=== PATIENT | female | born 1960 | race African-American/Black ===

== ENCOUNTER 2020-08-28 23:26 | Inpatient (IN) ==
[2020-08-28] MEDS ORDERED: SODIUM CHLORIDE 0.9% 1,000 ML IV STA (23:47)
[2020-08-29] LABS: Basophils % 0.2 % (0.0-0.8); Eosinophils % 0.1 % (0.00-10.9); Hematocrit 23.3 VOL% (35.7-47.0); Hemoglobin 7.2 GM/DL (12.0-16.0); Immature Granulocytes % 1.4 %; Immature Granulocytes Absolute 0.27 #; Lymphocytes % 5.2 % (21.3-54.2); Mean Corpuscular HGB Conc 30.9 GM/DL (32-36); Mean Corpuscular Volume 89.3 FL (87-102); Mean Platelet Volume 9.7 FL (9.6-12.0); Monocytes % 4.2 % (1.7-12.7); NRBC # 0.03 10*3/uL; Neutrophils % 88.9 % (38.7-73.9); Platelet Count 371 T/CUMM (130-400); Red Blood Count 2.61 MC/CUMM (3.8-5.5); Red Cell Distribution Width 14.8 % (9.3-17.3); White Blood Count 19.3 T/CUMM (4-12)
[2020-08-29 00:11] LABS: INR 1.1; PT Patient Result 12.2 SECS (10.5-12.0); Partial Thromboplastin Time 31.4 SECS (23.9-33.8)
[2020-08-29 00:18] LABS: Alanine Aminotransferase 25 U/L (13-56); Albumin 1.1 G/DL (3.4-5.0); Alkaline Phosphatase 145 U/L (45-117); Aspartate Amino Transferase 14 U/L (0-37); Bilirubin,Total < 0.39 MG/DL (0.2-1.0); Blood Urea Nitrogen 53 MG/DL (7-18); Carbon Dioxide 14 MMOL/L (21-32); Estimated Glom Filtration Rate 17 ML/MIN; Osmolality,Calculated 295.9 MOS/KG (273-304); Potassium 3.7 MMOL/L (3.5-5.1); Sodium 122 MMOL/L (136-145); Total Protein 4.7 G/DL (6.4-8.2)
[2020-08-29] MEDS ORDERED: LORazepam 2 MG/1 ML VIAL IV STA (00:20)
[2020-08-29] MEDS ORDERED: LORazepam 2 MG/1 ML VIAL ONE (00:21)
[2020-08-29 00:22] LABS: Glucose 772 MG/DL (74-106)
[2020-08-29 00:28] LABS: Band Neutrophils 4 % (0-10); Lymphocytes 7 % (20-55); Platelet Estimate Increased; Segmented Neutrophils 86 % (50-85); Total Cells Counted 100
[2020-08-29] MEDS ORDERED: INSULIN REGULAR 100 UNIT/ML IV STA (00:28)
[2020-08-29] MEDS ORDERED: INSULIN REGULAR DRIP 100 ML IV PRN (00:28)
[2020-08-29 00:29] LABS: Hypochromasia Slight; Microcytosis 1+; Polychromasia Slight
[2020-08-29] MEDS ORDERED: PIPERACILLIN/TAZOBACTAM 3,375 MG in SODIUM CHLORIDE 0.9% 100 ML IV STA (00:51)
[2020-08-29 01:07] LABS: ABG Base Excess -9.9 MMOL/L (-2.5-2.5); ABG HCO3 16.4 MMOL/L (20-26); ABG Oxygen Saturation 96.4 % (95-100); ABG PCO2 29.4 MM HG (35-48); ABG PH 7.321 (7.35-7.45); ABG PO2 99.6 MM HG (80-95); ABG TCO2 14.4 MMOL/L (23-27)
[2020-08-29] MEDS ORDERED: SODIUM CHLORIDE 0.9% 1,000 ML IV STA ×2 (01:07→01:31)
[2020-08-29 01:12] LABS: Bacteria,Urine Occasional /HPF (Few); Bilirubin,Urine Negative (Negative); Blood, Urine Negative (Negative); Glucose,Urine (UA) >=500 mg/dL (Negative); Hyaline Casts,Urine 4 /LPF (0-3); Ketones,Urine Negative (Negative); Mucus,Urine Occasional /LPF (Occasional); Nitrite,Urine Negative (Negative); Protein,Urine Negative; RBC,Urine 2 /HPF (0-4); Squamous Epithelial Cell,Urine Occasional /HPF (0-10); Urine Appearance Slightly Hazy (Clear); Urine Color Yellow (Yellow); Urine Specific Gravity 1.014 (1.001-1.035); Urine Urobilinogen < 2.0 EU/DL (0.2-1.0)
[2020-08-29] MEDS ORDERED: NOREPINEPHRINE 4 MG/4 ML VIAL IV ONE ×2 (01:55→06:30)
[2020-08-29] MEDS ORDERED: NOREPINEPHRINE 8 MG in SODIUM CHLORIDE 0.9% 242 ML IV PRN (01:55)
[2020-08-29] MEDS ORDERED: VANCOMYCIN INJ 1,000 MG in SODIUM CHLORIDE 0.9% 250 ML IV STA (03:23)
[2020-08-29] MEDS ORDERED: ROCURONIUM 100 MG/10 ML VIAL IV STA (03:29)
[2020-08-29] MEDS ORDERED: LEVOFLOXACIN INJ 750 MG/150 ML PREMIX IV ONE (03:29)
[2020-08-29] MEDS ORDERED: metroNIDAZOLE INJ 500 MG/100 ML PREMIX IV STA (03:30)
[2020-08-29] MEDS ORDERED: ETOMIDATE 20 MG/10 ML VIAL IV STA (03:30)
[2020-08-29] MEDS ORDERED: SODIUM CHLORIDE 0.9% 1,000 ML IV PRN (03:31)
[2020-08-29] MEDS ORDERED: LACTATED RINGERS 2,000 ML IV ONE (03:37)
[2020-08-29] MEDS ORDERED: ALBUTEROL 2.5 MG/3 ML NEB RESP TX PRN (04:07)
[2020-08-29 04:27] LABS: ABG Base Excess -9.5 MMOL/L (-2.5-2.5); ABG HCO3 16.7 MMOL/L (20-26); ABG Oxygen Saturation 99.9 % (95-100); ABG PCO2 27.2 MM HG (35-48); ABG PH 7.355 (7.35-7.45); ABG TCO2 14.5 MMOL/L (23-27)
[2020-08-29] MEDS ORDERED: TISSUE ADHESIVE 1 EACH APPLICATOR TOP ONE (04:40)
[2020-08-29] MEDS ORDERED: propofoL 200 MG/20 ML VIAL IV ONE (04:40)
[2020-08-29] MEDS ORDERED: MIDAZOLAM 2 MG/2 ML VIAL ONE (04:40)
[2020-08-29] MEDS ORDERED: LIDOCAINE 2% 5 ML VIAL ONE (04:40)
[2020-08-29] MEDS ORDERED: BUPIVACAINE MPF 0.25% 30 ML VIAL ONE (04:40)
[2020-08-29] MEDS ORDERED: LIDOCAINE 1%/EPI INJ 20 ML VIAL ONE (04:40)
[2020-08-29] MEDS ORDERED: ROCURONIUM 50 MG/5 ML VIAL IV ONE (04:40)
[2020-08-29] MEDS ORDERED: fentaNYL 100 MCG/2 ML VIAL ONE (04:40)
[2020-08-29] MEDS ORDERED: CLINDAMYCIN INJ 900 MG/50 ML PREMIX IV ONE (04:43)
[2020-08-29 05:43] LABS: ABG Base Excess -10.3 MMOL/L (-2.5-2.5); ABG HCO3 14.8 MMOL/L (20-26); ABG Oxygen Saturation 99.6 % (95-100); ABG PCO2 29.6 MM HG (35-48); ABG PH 7.318 (7.35-7.45); ABG TCO2 15.7 MMOL/L (23-27); Glucose Heart Surgery 163 MG/DL (74-106)
[2020-08-29 05:51] LABS: ABG PO2 527.5 MM HG (80-95)
[2020-08-29] MEDS ORDERED: SODIUM CHLORIDE 0.9% 2,000 ML IV ONE (06:03)
[2020-08-29] MEDS ORDERED: SEVOFLURANE 1 UNIT/15 MINUTE INH ONE (06:03)
[2020-08-29] MEDS ORDERED: PHENYLEPHRINE 1 MG/10 ML SYRINGE IV ONE (06:03)
[2020-08-29] MEDS: POTASSIUM CHLORIDE RIDER 20 MEQ in PREMIX 1 EACH IV SCH ×3 (08:00→12:55)
[2020-08-29 08:23] LABS: Calcium 7.7 MG/DL (8.5-10.1); Osmolality,Calculated 281.8 MOS/KG (273-304)
[2020-08-29 08:25] LABS: Potassium 2.3 MMOL/L (3.5-5.1)
[2020-08-29] MEDS ORDERED: DEXTROSE 50% 25 GM/50 ML VIAL IV ONE (09:26)
[2020-08-29] MEDS: DEXTROSE 50% 25 GM/50 ML VIAL IV PRN (09:27)
[2020-08-29] MEDS ORDERED: PHENYLEPHRINE DRIP 40 MG/250 ML PREMIX IV ONE (09:30)
[2020-08-29] MEDS ORDERED: SODIUM CHLORIDE 0.9% 500 ML IV ONE (09:32)
[2020-08-29] MEDS: PANTOPRAZOLE 40 MG VIAL IV SCH (09:45)
[2020-08-29] MEDS: HYDROCORTISONE 100 MG VIAL IV SCH ×3 (09:46→21:36)
[2020-08-29] MEDS: CEFUROXIME INJ 750 MG in SODIUM CHLORIDE 0.9% 100 ML IV SCH ×2 (09:46→21:16)
[2020-08-29 09:47] LABS: Basophils % 0.4 % (0.0-0.8); Immature Granulocytes % 0.4 %; Immature Granulocytes Absolute 0.03 #; Lymphocytes # 0.8 10*3/uL (1.4-4.0); Lymphocytes % 9.7 % (21.3-54.2); Mean Corpuscular HGB Conc 32.1 GM/DL (32-36); Mean Corpuscular Volume 88.1 FL (87-102); Mean Platelet Volume 9.1 FL (9.6-12.0); Monocytes % 1.3 % (1.7-12.7); Neutrophils % 88.2 % (38.7-73.9); Red Cell Distribution Width 14.9 % (9.3-17.3)
[2020-08-29 09:48] LABS: Red Blood Count 3.86 MC/CUMM (3.8-5.5); White Blood Count 7.7 T/CUMM (4-12)
[2020-08-29 09:49] LABS: Hemoglobin 10.9 GM/DL (12.0-16.0); Platelet Count 237 T/CUMM (130-400)
[2020-08-29] MEDS ORDERED: POTASSIUM CHLORIDE RIDER 10 MEQ in PREMIX 1 EACH IV PRN (09:54)
[2020-08-29] MEDS: DEXTROSE 5% KCL 20 MEQ 20 MEQ/1,000 ML BAG IV SCH ×2 (09:59→20:06)
[2020-08-29 10:04] LABS: Band Neutrophils 10 % (0-10); Hypochromasia 1+; Lymphocytes 9 % (20-55); Segmented Neutrophils 79 % (50-85); Total Cells Counted 100
[2020-08-29] MEDS ORDERED: MAGNESIUM SULF RIDER 2 GM/50 ML PREMIX IV ONE (10:04)
[2020-08-29 10:05] LABS: Microcytosis 1+
[2020-08-29] MEDS: metroNIDAZOLE INJ 500 MG/100 ML PREMIX IV SCH ×3 (10:08→23:38)
[2020-08-29 12:30] LABS: Basophils # 0.1 10*3/uL (0.0-0.2); Basophils % 0.6 % (0.0-0.8); Hemoglobin 10.9 GM/DL (12.0-16.0); Immature Granulocytes % 1.6 %; Immature Granulocytes Absolute 0.21 #; Lymphocytes # 0.6 10*3/uL (1.4-4.0); Lymphocytes % 4.5 % (21.3-54.2); Mean Corpuscular HGB Conc 35.2 GM/DL (32-36); Mean Corpuscular Volume 82.4 FL (87-102); Mean Platelet Volume 9.1 FL (9.6-12.0); Monocytes % 2.5 % (1.7-12.7); NRBC # 0.08 10*3/uL; Neutrophils % 90.8 % (38.7-73.9); Platelet Count 269 T/CUMM (130-400); Red Blood Count 3.76 MC/CUMM (3.8-5.5); Red Cell Distribution Width 14.6 % (9.3-17.3); White Blood Count 13.4 T/CUMM (4-12)
[2020-08-29 12:48] LABS: Calcium 7.5 MG/DL (8.5-10.1); Osmolality,Calculated 282.1 MOS/KG (273-304); Potassium 3.6 MMOL/L (3.5-5.1)
[2020-08-29 12:56] LABS: Anisocytosis 1+; Band Neutrophils 30 % (0-10); Burr Cells Few; Lymphocytes 4 % (20-55); Nucleated Red Blood Cells 1 (0-5); Platelet Estimate Normal; Segmented Neutrophils 64 % (50-85); Total Cells Counted 100
[2020-08-29 12:57] LABS: Poikilocytosis Slight
[2020-08-29] MEDS ORDERED: LACTATED RINGERS 1,000 ML IV ONE (13:02)
[2020-08-29] MEDS: fentaNYL INJ 1,250 MCG in SODIUM CHLORIDE 0.9% 225 ML IV PRN ×2 (13:45→23:37)
[2020-08-29] MEDS: MIDAZOLAM 100 MG in SODIUM CHLORIDE 0.9% 80 ML IV PRN (13:45)
[2020-08-29] MEDS: NOREPINEPHRINE 16 MG in SODIUM CHLORIDE 0.9% 234 ML IV PRN ×2 (13:55→20:40)
[2020-08-29] MEDS: PHENYLEPHRINE DRIP 40 MG/250 ML PREMIX IV PRN (15:00)
[2020-08-29] MEDS ORDERED: CALCIUM GLUCONATE 2,000 MG in SODIUM CHLORIDE 0.9% 100 ML IV ONE (16:00)
[2020-08-29] MEDS: POTASSIUM CHLORIDE RIDER 20 MEQ in PREMIX 1 EACH IV PRN ×2 (17:19→19:36)
[2020-08-29] MEDS: INSULIN LISPRO 100 UNIT/ML SUBCUT SCH ×2 (17:49→21:35)
[2020-08-30] MEDS: INSULIN LISPRO 100 UNIT/ML SUBCUT SCH ×6 (03:03→22:49)
[2020-08-30] MEDS: PHENYLEPHRINE DRIP 40 MG/250 ML PREMIX IV PRN (03:41)
[2020-08-30] MEDS: HYDROCORTISONE 100 MG VIAL IV SCH ×4 (03:45→22:49)
[2020-08-30 04:24] LABS: Basophils % 0.2 % (0.0-0.8); Hemoglobin 9.1 GM/DL (12.0-16.0); Immature Granulocytes % 1.2 %; Immature Granulocytes Absolute 0.25 #; Lymphocytes # 0.7 10*3/uL (1.4-4.0); Lymphocytes % 3.4 % (21.3-54.2); Mean Corpuscular Volume 81.8 FL (87-102); Mean Platelet Volume 9.1 FL (9.6-12.0); Monocytes % 2.1 % (1.7-12.7); Neutrophils % 93.1 % (38.7-73.9); Platelet Count 176 T/CUMM (130-400); Red Blood Count 3.18 MC/CUMM (3.8-5.5); Red Cell Distribution Width 14.7 % (9.3-17.3); White Blood Count 20.6 T/CUMM (4-12)
[2020-08-30 04:25] LABS: ABG HCO3 20.4 MMOL/L (20-26); ABG Oxygen Saturation 99.8 % (95-100); ABG PH 7.492 (7.35-7.45); ABG TCO2 13.5 MMOL/L (23-27)
[2020-08-30 04:33] LABS: INR 1.2
[2020-08-30 04:35] LABS: ABG PCO2 20.9 MM HG (35-48)
[2020-08-30 04:37] LABS: Albumin 0.8 G/DL (3.4-5.0); Bilirubin,Total 1.1 MG/DL (0.2-1.0); Osmolality,Calculated 285.4 MOS/KG (273-304); Potassium 3.8 MMOL/L (3.5-5.1); Total Protein 4.6 G/DL (6.4-8.2)
[2020-08-30 04:51] LABS: Band Neutrophils 6 % (0-10); Lymphocytes 2 % (20-55); Nucleated Red Blood Cells 1 (0-5); Segmented Neutrophils 89 % (50-85); Total Cells Counted 100
[2020-08-30 04:52] LABS: Anisocytosis 1+; Hypochromasia 1+; Microcytosis 1+
[2020-08-30 04:53] LABS: Platelet Estimate Adequate; Target Cells Slight
[2020-08-30] MEDS ORDERED: MAGNESIUM SULF RIDER 2 GM/50 ML PREMIX IV ONE (05:24)
[2020-08-30] MEDS: DEXTROSE 5% KCL 20 MEQ 20 MEQ/1,000 ML BAG IV SCH ×2 (05:25→15:59)
[2020-08-30] MEDS: POTASSIUM CHLORIDE RIDER 20 MEQ in PREMIX 1 EACH IV PRN (05:26)
[2020-08-30] MEDS: NOREPINEPHRINE 16 MG in SODIUM CHLORIDE 0.9% 234 ML IV PRN ×3 (05:27→16:57)
[2020-08-30] MEDS: metroNIDAZOLE INJ 500 MG/100 ML PREMIX IV SCH ×3 (05:28→16:29)
[2020-08-30] MEDS: MAGNESIUM SULF RIDER 2 GM/50 ML PREMIX IV PRN (05:29)
[2020-08-30 05:51] LABS: Potassium Heart/CVR 2.3 MMOL/L (3.5-5.1)
[2020-08-30] MEDS: fentaNYL INJ 1,250 MCG in SODIUM CHLORIDE 0.9% 225 ML IV PRN ×2 (08:36→18:43)
[2020-08-30] MEDS: PANTOPRAZOLE 40 MG VIAL IV SCH (08:59)
[2020-08-30] MEDS: CEFUROXIME INJ 750 MG in SODIUM CHLORIDE 0.9% 100 ML IV SCH ×2 (08:59→20:25)
[2020-08-30] MEDS: INSULIN GLARGINE 100 UNIT/ML SUBCUT SCH (09:16)
[2020-08-30] MEDS ORDERED: PHENYLEPHRINE DRIP 40 MG/250 ML PREMIX IV PRN (09:52)
[2020-08-30] MEDS ORDERED: POTASSIUM PHOSPHATE 30 MMOL in SODIUM CHLORIDE 0.9% 250 ML IV ONE (10:00)
[2020-08-30] MEDS: MIDAZOLAM 100 MG in SODIUM CHLORIDE 0.9% 80 ML IV PRN (12:52)
[2020-08-31] MEDS: metroNIDAZOLE INJ 500 MG/100 ML PREMIX IV SCH ×5 (00:07→22:27)
[2020-08-31] MEDS: DEXTROSE 5% KCL 20 MEQ 20 MEQ/1,000 ML BAG IV SCH ×4 (01:39→23:53)
[2020-08-31] MEDS: INSULIN LISPRO 100 UNIT/ML SUBCUT SCH ×6 (01:50→22:26)
[2020-08-31] MEDS: fentaNYL INJ 1,250 MCG in SODIUM CHLORIDE 0.9% 225 ML IV PRN ×2 (02:41→13:50)
[2020-08-31] MEDS: MIDAZOLAM 100 MG in SODIUM CHLORIDE 0.9% 80 ML IV PRN (03:53)
[2020-08-31] MEDS: HYDROCORTISONE 100 MG VIAL IV SCH ×4 (03:58→22:27)
[2020-08-31 04:25] LABS: ABG Base Excess -6.1 MMOL/L (-2.5-2.5); ABG HCO3 19.4 MMOL/L (20-26); ABG Oxygen Saturation 99.3 % (95-100); ABG PCO2 29.3 MM HG (35-48); ABG PH 7.393 (7.35-7.45); ABG TCO2 16.5 MMOL/L (23-27)
[2020-08-31 04:36] LABS: Basophils % 0.1 % (0.0-0.8); Hematocrit 26.8 VOL% (35.7-47.0); Hemoglobin 8.6 GM/DL (12.0-16.0); Immature Granulocytes % 1.2 %; Immature Granulocytes Absolute 0.22 #; Lymphocytes # 0.6 10*3/uL (1.4-4.0); Lymphocytes % 3.3 % (21.3-54.2); Mean Corpuscular HGB Conc 32.1 GM/DL (32-36); Mean Corpuscular Volume 86.2 FL (87-102); Mean Platelet Volume 8.7 FL (9.6-12.0); NRBC # 0.11 10*3/uL; Neutrophils % 93.4 % (38.7-73.9); Platelet Count 103 T/CUMM (130-400); Red Blood Count 3.11 MC/CUMM (3.8-5.5); Red Cell Distribution Width 15.7 % (9.3-17.3); White Blood Count 17.7 T/CUMM (4-12)
[2020-08-31 04:48] LABS: Band Neutrophils 1 % (0-10); Hypochromasia 1+; Lymphocytes 4 % (20-55); Microcytosis 1+; Ovalocytes Slight; Platelet Estimate Decreased; Segmented Neutrophils 91 % (50-85); Total Cells Counted 100
[2020-08-31 05:01] LABS: Alanine Aminotransferase 14 U/L (13-56); Albumin 0.8 G/DL (3.4-5.0); Alkaline Phosphatase 150 U/L (45-117); Aspartate Amino Transferase 20 U/L (0-37); Bilirubin,Total < 0.39 MG/DL (0.2-1.0); Blood Urea Nitrogen 22 MG/DL (7-18); Calcium 7.4 MG/DL (8.5-10.1); Carbon Dioxide 20 MMOL/L (21-32); Estimated Glom Filtration Rate 79 ML/MIN; Glucose 113 MG/DL (74-106); Osmolality,Calculated 282.4 MOS/KG (273-304); Potassium 3.6 MMOL/L (3.5-5.1); Sodium 140 MMOL/L (136-145); Total Protein 3.8 G/DL (6.4-8.2)
[2020-08-31] MEDS: MAGNESIUM SULF RIDER 2 GM/50 ML PREMIX IV PRN (05:13)
[2020-08-31] MEDS: POTASSIUM CHLORIDE RIDER 20 MEQ in PREMIX 1 EACH IV PRN (07:04)
[2020-08-31] MEDS: DEXTROSE 50% 25 GM/50 ML VIAL IV PRN (07:25)
[2020-08-31] MEDS: INSULIN GLARGINE 100 UNIT/ML SUBCUT SCH (09:10)
[2020-08-31] MEDS: PANTOPRAZOLE 40 MG VIAL IV SCH (09:11)
[2020-08-31] MEDS: CEFUROXIME INJ 750 MG in SODIUM CHLORIDE 0.9% 100 ML IV SCH ×2 (09:11→20:39)
[2020-08-31] MEDS: NOREPINEPHRINE 16 MG in SODIUM CHLORIDE 0.9% 234 ML IV PRN (09:57)
[2020-08-31] MEDS ORDERED: ROCURONIUM 50 MG/5 ML VIAL IV ONE (11:18)
[2020-08-31] MEDS ORDERED: MIDAZOLAM 2 MG/2 ML VIAL ONE ×2 (11:19)
[2020-08-31] MEDS ORDERED: ALBUMIN 5% 25.0 GM/500 ML VIAL IV ONE (12:04)
[2020-08-31] MEDS ORDERED: LACTATED RINGERS 1,000 ML IV ONE (12:27)
[2020-08-31] MEDS ORDERED: SODIUM BICARBONATE 50 MEQ/50 ML VIAL IV ONE (12:28)
[2020-08-31] MEDS ORDERED: CALCIUM CHLORIDE 1,000 MG/10 ML VIAL IV ONE (12:28)
[2020-08-31] MEDS ORDERED: PHENYLEPHRINE 1 MG/10 ML SYRINGE IV ONE (12:41)
[2020-08-31] MEDS ORDERED: SEVOFLURANE 1 UNIT/15 MINUTE INH ONE (13:26)
[2020-08-31] MEDS: HALOPERIDOL DECANOATE 50 MG/1 ML VIAL IM SCH (14:03)
[2020-09-01] MEDS: INSULIN LISPRO 100 UNIT/ML SUBCUT SCH ×6 (02:23→22:49)
[2020-09-01] MEDS: MIDAZOLAM 100 MG in SODIUM CHLORIDE 0.9% 80 ML IV PRN (02:47)
[2020-09-01 03:19] LABS: ABG Base Excess -1.4 MMOL/L (-2.5-2.5); ABG HCO3 23.3 MMOL/L (20-26); ABG Oxygen Saturation 99.9 % (95-100); ABG PCO2 22.5 MM HG (35-48)
[2020-09-01 03:22] LABS: Basophils % 0.1 % (0.0-0.8); Hematocrit 21.2 VOL% (35.7-47.0); Hemoglobin 6.9 GM/DL (12.0-16.0); Immature Granulocytes % 1.3 %; Immature Granulocytes Absolute 0.21 #; Lymphocytes # 0.6 10*3/uL (1.4-4.0); Lymphocytes % 3.4 % (21.3-54.2); Mean Corpuscular HGB Conc 32.5 GM/DL (32-36); Mean Corpuscular Volume 85.5 FL (87-102); Mean Platelet Volume 10.1 FL (9.6-12.0); Monocytes % 2.4 % (1.7-12.7); Neutrophils % 92.8 % (38.7-73.9); Platelet Count 85 T/CUMM (130-400); Red Blood Count 2.48 MC/CUMM (3.8-5.5); Red Cell Distribution Width 15.8 % (9.3-17.3)
[2020-09-01 03:42] LABS: Albumin 1.3 G/DL (3.4-5.0); Bilirubin,Total 0.6 MG/DL (0.2-1.0); Calcium 7.6 MG/DL (8.5-10.1); Hypochromasia 1+; Lymphocytes 4 % (20-55); Microcytosis 1+; Osmolality,Calculated 280.7 MOS/KG (273-304); Platelet Estimate Decreased; Potassium 3.6 MMOL/L (3.5-5.1); Segmented Neutrophils 95 % (50-85); Total Cells Counted 100
[2020-09-01] MEDS: HYDROCORTISONE 100 MG VIAL IV SCH ×4 (05:14→22:07)
[2020-09-01] MEDS: metroNIDAZOLE INJ 500 MG/100 ML PREMIX IV SCH ×4 (05:14→22:07)
[2020-09-01] MEDS: MAGNESIUM SULF RIDER 2 GM/50 ML PREMIX IV PRN (05:24)
[2020-09-01] MEDS ORDERED: SODIUM CHLORIDE 0.9% 1,000 ML IV PRN (06:09)
[2020-09-01] MEDS: fentaNYL INJ 1,250 MCG in SODIUM CHLORIDE 0.9% 225 ML IV PRN ×2 (07:46→16:41)
[2020-09-01] MEDS: PANTOPRAZOLE 40 MG VIAL IV SCH (08:43)
[2020-09-01] MEDS: INSULIN GLARGINE 100 UNIT/ML SUBCUT SCH (08:48)
[2020-09-01] MEDS: DEXTROSE 5% KCL 20 MEQ 20 MEQ/1,000 ML BAG IV SCH ×3 (09:36→20:12)
[2020-09-01] MEDS: CEFUROXIME INJ 750 MG in SODIUM CHLORIDE 0.9% 100 ML IV SCH ×2 (09:36→22:06)
[2020-09-01] MEDS ORDERED: POTASSIUM PHOSPHATE 30 MMOL in SODIUM CHLORIDE 0.9% 250 ML IV ONE (10:00)
[2020-09-01 15:19] LABS: Hematocrit 29.9 VOL% (35.7-47.0); Hemoglobin 9.8 GM/DL (12.0-16.0)
[2020-09-01 19:10] LABS: Potassium 4.5 MMOL/L (3.5-5.1)
[2020-09-01] MEDS: NYSTATIN POWDER 15 GM BOTTLE TOP SCH (22:06)
[2020-09-01] MEDS: OLANZapine 2.5 MG TABLET PO SCH (22:06)
[2020-09-02] MEDS: fentaNYL INJ 1,250 MCG in SODIUM CHLORIDE 0.9% 225 ML IV PRN ×3 (01:18→19:09)
[2020-09-02 04:32] LABS: Basophils % 0.2 % (0.0-0.8); Hematocrit 31.5 VOL% (35.7-47.0); Hemoglobin 10.4 GM/DL (12.0-16.0); Immature Granulocytes % 1.9 %; Immature Granulocytes Absolute 0.28 #; Lymphocytes # 0.5 10*3/uL (1.4-4.0); Lymphocytes % 3.5 % (21.3-54.2); Mean Corpuscular Volume 85.6 FL (87-102); Mean Platelet Volume 10.4 FL (9.6-12.0); Monocytes % 3.1 % (1.7-12.7); NRBC # 0.08 10*3/uL; Neutrophils % 91.3 % (38.7-73.9); Red Cell Distribution Width 15.9 % (9.3-17.3); White Blood Count 14.7 T/CUMM (4-12)
[2020-09-02 04:35] LABS: ABG Base Excess 5.8 MMOL/L (-2.5-2.5); ABG HCO3 29.5 MMOL/L (20-26); ABG Oxygen Saturation 92.7 % (95-100); ABG PO2 69.7 MM HG (80-95); ABG TCO2 28.3 MMOL/L (23-27)
[2020-09-02 04:36] LABS: Platelet Count 80 T/CUMM (130-400); Red Blood Count 3.68 MC/CUMM (3.8-5.5)
[2020-09-02 04:56] LABS: Calcium 7.7 MG/DL (8.5-10.1); Osmolality,Calculated 283.1 MOS/KG (273-304); Potassium 4.6 MMOL/L (3.5-5.1)
[2020-09-02] MEDS: DEXTROSE 5% KCL 20 MEQ 20 MEQ/1,000 ML BAG IV SCH ×2 (04:58→06:12)
[2020-09-02] MEDS: HYDROCORTISONE 100 MG VIAL IV SCH ×5 (05:05→23:40)
[2020-09-02] MEDS: INSULIN LISPRO 100 UNIT/ML SUBCUT SCH ×6 (05:12→22:08)
[2020-09-02] MEDS: metroNIDAZOLE INJ 500 MG/100 ML PREMIX IV SCH ×4 (05:20→23:43)
[2020-09-02] MEDS: NOREPINEPHRINE 16 MG in SODIUM CHLORIDE 0.9% 234 ML IV PRN (06:50)
[2020-09-02 06:57] LABS: Hypochromasia 2+; Lymphocytes 4 % (20-55); Nucleated Red Blood Cells 1 (0-5); Platelet Estimate Decreased; Segmented Neutrophils 92 % (50-85)
[2020-09-02 07:00] LABS: Total Cells Counted 100
[2020-09-02] MEDS ORDERED: POTASSIUM PHOSPHATE 30 MMOL in SODIUM CHLORIDE 0.9% 250 ML IV ONE (07:43)
[2020-09-02] MEDS ORDERED: MAGNESIUM SULF RIDER 2 GM/50 ML PREMIX IV ONE (07:43)
[2020-09-02] MEDS: PANTOPRAZOLE 40 MG VIAL IV SCH (08:43)
[2020-09-02] MEDS: INSULIN GLARGINE 100 UNIT/ML SUBCUT SCH (08:43)
[2020-09-02] MEDS: NYSTATIN POWDER 15 GM BOTTLE TOP SCH ×2 (08:44→21:24)
[2020-09-02] MEDS: CEFUROXIME INJ 750 MG in SODIUM CHLORIDE 0.9% 100 ML IV SCH ×2 (09:30→21:25)
[2020-09-02] MEDS: MIDAZOLAM 100 MG in SODIUM CHLORIDE 0.9% 80 ML IV PRN (09:55)
[2020-09-02] MEDS: LACTATED RINGERS 1,000 ML IV SCH (09:57)
[2020-09-02] MEDS: OLANZapine 2.5 MG TABLET PO SCH (21:24)
[2020-09-03] MEDS: INSULIN LISPRO 100 UNIT/ML SUBCUT SCH ×6 (01:59→20:17)
[2020-09-03] MEDS: fentaNYL INJ 1,250 MCG in SODIUM CHLORIDE 0.9% 225 ML IV PRN ×3 (02:32→23:14)
[2020-09-03 04:44] LABS: ABG Base Excess -2.5 MMOL/L (-2.5-2.5); ABG HCO3 22.3 MMOL/L (20-26); ABG Oxygen Saturation 99.6 % (95-100); ABG PCO2 22.1 MM HG (35-48); ABG PH 7.536 (7.35-7.45); ABG TCO2 16.9 MMOL/L (23-27)
[2020-09-03 05:05] LABS: Basophils % 0.1 % (0.0-0.8); Hematocrit 31.5 VOL% (35.7-47.0); Hemoglobin 10.4 GM/DL (12.0-16.0); Immature Granulocytes % 1.8 %; Immature Granulocytes Absolute 0.28 #; Lymphocytes # 0.6 10*3/uL (1.4-4.0); Lymphocytes % 3.6 % (21.3-54.2); Mean Corpuscular Volume 85.6 FL (87-102); Mean Platelet Volume 11.2 FL (9.6-12.0); Monocytes % 3.6 % (1.7-12.7); NRBC # 0.02 10*3/uL; Neutrophils % 90.9 % (38.7-73.9); Platelet Count 80 T/CUMM (130-400); Red Blood Count 3.68 MC/CUMM (3.8-5.5); Red Cell Distribution Width 15.7 % (9.3-17.3); White Blood Count 15.9 T/CUMM (4-12)
[2020-09-03 05:22] LABS: Albumin 1.4 G/DL (3.4-5.0); Calcium 7.4 MG/DL (8.5-10.1); Osmolality,Calculated 288.4 MOS/KG (273-304); Potassium 4.2 MMOL/L (3.5-5.1); Total Protein 4.2 G/DL (6.4-8.2)
[2020-09-03] MEDS: metroNIDAZOLE INJ 500 MG/100 ML PREMIX IV SCH ×4 (06:15→22:28)
[2020-09-03 06:16] LABS: Band Neutrophils 1 % (0-10); Lymphocytes 2 % (20-55); Platelet Estimate Decreased; Segmented Neutrophils 96 % (50-85); Total Cells Counted 100
[2020-09-03] MEDS: HYDROCORTISONE 100 MG VIAL IV SCH ×4 (06:16→22:24)
[2020-09-03] MEDS: LACTATED RINGERS 1,000 ML IV SCH ×2 (06:40→06:41)
[2020-09-03] MEDS: MAGNESIUM SULF RIDER 2 GM/50 ML PREMIX IV PRN (06:53)
[2020-09-03] MEDS: PANTOPRAZOLE 40 MG VIAL IV SCH (08:19)
[2020-09-03] MEDS: INSULIN GLARGINE 100 UNIT/ML SUBCUT SCH (08:19)
[2020-09-03] MEDS: NYSTATIN POWDER 15 GM BOTTLE TOP SCH ×2 (08:19→20:17)
[2020-09-03] MEDS: CEFUROXIME INJ 750 MG in SODIUM CHLORIDE 0.9% 100 ML IV SCH ×2 (09:40→20:17)
[2020-09-03] MEDS ORDERED: POTASSIUM PHOSPHATE 30 MMOL in SODIUM CHLORIDE 0.9% 250 ML IV ONE (10:37)
[2020-09-03] MEDS ORDERED: LACTATED RINGERS 1,000 ML IV ONE (13:55)
[2020-09-03] MEDS: HALOPERIDOL DECANOATE 50 MG/1 ML VIAL IM SCH (13:59)
[2020-09-03] MEDS: OLANZapine 2.5 MG TABLET PO SCH (20:17)
[2020-09-03] MEDS: MIDAZOLAM 100 MG in SODIUM CHLORIDE 0.9% 80 ML IV PRN (20:46)
[2020-09-04] MEDS: INSULIN LISPRO 100 UNIT/ML SUBCUT SCH ×6 (00:12→23:19)
[2020-09-04] MEDS: NOREPINEPHRINE 16 MG in SODIUM CHLORIDE 0.9% 234 ML IV PRN (03:04)
[2020-09-04] MEDS: LACTATED RINGERS 1,000 ML IV SCH (03:08)
[2020-09-04 03:56] LABS: Basophils % 0.2 % (0.0-0.8); Hematocrit 31.1 VOL% (35.7-47.0); Hemoglobin 10.3 GM/DL (12.0-16.0); Immature Granulocytes % 2.2 %; Lymphocytes # 0.5 10*3/uL (1.4-4.0); Lymphocytes % 2.6 % (21.3-54.2); Mean Corpuscular HGB Conc 33.1 GM/DL (32-36); Mean Corpuscular Volume 87.4 FL (87-102); Mean Platelet Volume 11.3 FL (9.6-12.0); Monocytes % 3.8 % (1.7-12.7); NRBC # 0.02 10*3/uL; Neutrophils % 91.2 % (38.7-73.9); Platelet Count 82 T/CUMM (130-400); Red Blood Count 3.56 MC/CUMM (3.8-5.5); Red Cell Distribution Width 16.1 % (9.3-17.3); White Blood Count 18.6 T/CUMM (4-12)
[2020-09-04 04:11] LABS: Calcium 7.8 MG/DL (8.5-10.1); Osmolality,Calculated 290.3 MOS/KG (273-304); Potassium 4.9 MMOL/L (3.5-5.1)
[2020-09-04 04:16] LABS: Hypochromasia 1+; Lymphocytes 1 % (20-55); Microcytosis 1+; Ovalocytes Slight; Platelet Estimate Decreased; Segmented Neutrophils 95 % (50-85); Total Cells Counted 100
[2020-09-04 04:19] LABS: ABG Base Excess -3.8 MMOL/L (-2.5-2.5); ABG HCO3 21.3 MMOL/L (20-26); ABG Oxygen Saturation 99.1 % (95-100); ABG PCO2 37.7 MM HG (35-48); ABG PH 7.358 (7.35-7.45); ABG TCO2 19.2 MMOL/L (23-27)
[2020-09-04] MEDS: MAGNESIUM SULF RIDER 2 GM/50 ML PREMIX IV PRN (04:25)
[2020-09-04] MEDS: HYDROCORTISONE 100 MG VIAL IV SCH ×2 (05:04→17:27)
[2020-09-04] MEDS: metroNIDAZOLE INJ 500 MG/100 ML PREMIX IV SCH ×4 (05:06→23:04)
[2020-09-04] MEDS: fentaNYL INJ 1,250 MCG in SODIUM CHLORIDE 0.9% 225 ML IV PRN (06:16)
[2020-09-04] MEDS: INSULIN GLARGINE 100 UNIT/ML SUBCUT SCH (08:55)
[2020-09-04] MEDS: PANTOPRAZOLE 40 MG VIAL IV SCH (08:56)
[2020-09-04] MEDS: NYSTATIN POWDER 15 GM BOTTLE TOP SCH ×2 (08:59→20:30)
[2020-09-04] MEDS: CEFUROXIME INJ 750 MG in SODIUM CHLORIDE 0.9% 100 ML IV SCH ×2 (09:26→20:30)
[2020-09-05] MEDS: HYDROmorphone 2 MG/1 ML VIAL IV PRN (01:50)
[2020-09-05 03:28] LABS: Basophils % 0.1 % (0.0-0.8); Hematocrit 33.4 VOL% (35.7-47.0); Hemoglobin 10.4 GM/DL (12.0-16.0); Immature Granulocytes % 1.4 %; Lymphocytes # 0.7 10*3/uL (1.4-4.0); Lymphocytes % 5.2 % (21.3-54.2); Mean Corpuscular HGB Conc 31.1 GM/DL (32-36); Mean Platelet Volume 11.6 FL (9.6-12.0); Monocytes % 4.3 % (1.7-12.7); NRBC # 0.02 10*3/uL; Platelet Count 73 T/CUMM (130-400); Red Blood Count 3.67 MC/CUMM (3.8-5.5); Red Cell Distribution Width 16.7 % (9.3-17.3); White Blood Count 14.1 T/CUMM (4-12)
[2020-09-05 03:40] LABS: Osmolality,Calculated 285.4 MOS/KG (273-304); Potassium 5.3 MMOL/L (3.5-5.1)
[2020-09-05] MEDS: MAGNESIUM SULF RIDER 2 GM/50 ML PREMIX IV PRN (04:45)
[2020-09-05] MEDS: metroNIDAZOLE INJ 500 MG/100 ML PREMIX IV SCH ×3 (04:45→17:50)
[2020-09-05] MEDS: HYDROCORTISONE 100 MG VIAL IV SCH (04:46)
[2020-09-05 05:17] LABS: Allen Test Positive
[2020-09-05 05:18] LABS: ABG Base Excess -2.4 MMOL/L (-2.5-2.5); ABG HCO3 21.1 MMOL/L (20-26); ABG Oxygen Saturation 98.1 % (95-100); ABG PCO2 31.8 MM HG (35-48); ABG PH 7.439 (7.35-7.45); ABG PO2 111.4 MM HG (80-95)
[2020-09-05] MEDS: INSULIN LISPRO 100 UNIT/ML SUBCUT SCH ×4 (05:34→23:26)
[2020-09-05] MEDS: NYSTATIN POWDER 15 GM BOTTLE TOP SCH ×2 (08:28→20:57)
[2020-09-05] MEDS: PANTOPRAZOLE 40 MG VIAL IV SCH (08:29)
[2020-09-05] MEDS: INSULIN GLARGINE 100 UNIT/ML SUBCUT SCH (08:29)
[2020-09-05] MEDS: CEFUROXIME INJ 750 MG in SODIUM CHLORIDE 0.9% 100 ML IV SCH (08:32)
[2020-09-05] MEDS ORDERED: FUROSEMIDE 20 MG/2 ML VIAL IV ONE (08:45)
[2020-09-05] MEDS: METOPROLOL TARTRATE 25 MG TABLET PO SCH ×2 (11:22→20:57)
[2020-09-05] MEDS: ALBUTEROL/IPRATROPIUM 3 ML NEB RESP TX SCH ×2 (15:27→19:17)
[2020-09-05] MEDS ORDERED: FUROSEMIDE 40 MG/4 ML VIAL IV ONE (15:38)
[2020-09-05] MEDS ORDERED: HYDROCORTISONE 100 MG VIAL IV SCH (20:00)
[2020-09-06] MEDS: ALBUTEROL/IPRATROPIUM 3 ML NEB RESP TX SCH ×4 (00:10→18:19)
[2020-09-06 04:47] LABS: Basophils % 0.1 % (0.0-0.8); Hematocrit 35.4 VOL% (35.7-47.0); Hemoglobin 10.8 GM/DL (12.0-16.0); Immature Granulocytes % 1.2 %; Immature Granulocytes Absolute 0.17 #; Lymphocytes # 0.6 10*3/uL (1.4-4.0); Lymphocytes % 3.9 % (21.3-54.2); Mean Corpuscular HGB Conc 30.5 GM/DL (32-36); Mean Corpuscular Volume 92.7 FL (87-102); Mean Platelet Volume 11.5 FL (9.6-12.0); NRBC # 0.03 10*3/uL; Neutrophils % 90.8 % (38.7-73.9); Platelet Count 81 T/CUMM (130-400); Red Blood Count 3.82 MC/CUMM (3.8-5.5); Red Cell Distribution Width 17.3 % (9.3-17.3); White Blood Count 14.6 T/CUMM (4-12)
[2020-09-06 05:05] LABS: Calcium 8.7 MG/DL (8.5-10.1); Osmolality,Calculated 291.3 MOS/KG (273-304); Potassium 5.2 MMOL/L (3.5-5.1)
[2020-09-06 05:06] LABS: Hypochromasia Slight; Lymphocytes 2 % (20-55); Microcytosis Slight; Platelet Estimate Decreased; Segmented Neutrophils 94 % (50-85); Total Cells Counted 100
[2020-09-06] MEDS: INSULIN LISPRO 100 UNIT/ML SUBCUT SCH ×3 (05:52→19:21)
[2020-09-06] MEDS ORDERED: FUROSEMIDE 40 MG/4 ML VIAL IV ONE (07:47)
[2020-09-06] MEDS: METOPROLOL TARTRATE 25 MG TABLET PO SCH ×2 (08:15→20:40)
[2020-09-06] MEDS: methylPREDNISolone SOD SUC 40 MG/1 ML VIAL IV SCH ×2 (08:15→16:43)
[2020-09-06] MEDS: INSULIN GLARGINE 100 UNIT/ML SUBCUT SCH (08:15)
[2020-09-06] MEDS: NYSTATIN POWDER 15 GM BOTTLE TOP SCH ×2 (08:16→20:40)
[2020-09-06] MEDS: HYDROmorphone 2 MG/1 ML VIAL IV PRN ×2 (10:08→20:40)
[2020-09-07] MEDS: ALBUTEROL/IPRATROPIUM 3 ML NEB RESP TX SCH ×4 (01:00→19:06)
[2020-09-07] MEDS: INSULIN LISPRO 100 UNIT/ML SUBCUT SCH ×4 (01:15→18:32)
[2020-09-07] MEDS: methylPREDNISolone SOD SUC 40 MG/1 ML VIAL IV SCH ×3 (01:16→16:21)
[2020-09-07 04:45] LABS: Basophils % 0.1 % (0.0-0.8); Hematocrit 33.3 VOL% (35.7-47.0); Hemoglobin 10.1 GM/DL (12.0-16.0); Immature Granulocytes % 0.8 %; Immature Granulocytes Absolute 0.17 #; Lymphocytes # 0.3 10*3/uL (1.4-4.0); Lymphocytes % 1.5 % (21.3-54.2); Mean Corpuscular HGB Conc 30.3 GM/DL (32-36); Mean Corpuscular Volume 94.3 FL (87-102); Mean Platelet Volume 11.8 FL (9.6-12.0); Monocytes % 2.6 % (1.7-12.7); NRBC # 0.02 10*3/uL; Red Blood Count 3.53 MC/CUMM (3.8-5.5); Red Cell Distribution Width 17.5 % (9.3-17.3)
[2020-09-07 04:46] LABS: Platelet Count 90 T/CUMM (130-400)
[2020-09-07 04:56] LABS: Calcium 8.9 MG/DL (8.5-10.1); Osmolality,Calculated 299.1 MOS/KG (273-304)
[2020-09-07 05:03] LABS: Hypochromasia 1+; Lymphocytes 1 % (20-55); Microcytosis 1+; Platelet Estimate Decreased; Segmented Neutrophils 96 % (50-85); Total Cells Counted 100
[2020-09-07] MEDS: METOPROLOL TARTRATE 25 MG TABLET PO SCH ×2 (08:58→20:14)
[2020-09-07] MEDS: NYSTATIN POWDER 15 GM BOTTLE TOP SCH ×2 (08:58→20:15)
[2020-09-07] MEDS: INSULIN GLARGINE 100 UNIT/ML SUBCUT SCH (09:09)
[2020-09-07] MEDS ORDERED: NOREPINEPHRINE 16 MG in SODIUM CHLORIDE 0.9% 234 ML IV PRN (09:28)
[2020-09-07] MEDS: HYDROmorphone 2 MG/1 ML VIAL IV PRN (16:16)
[2020-09-08] MEDS: INSULIN LISPRO 100 UNIT/ML SUBCUT SCH ×4 (01:05→18:05)
[2020-09-08] MEDS: methylPREDNISolone SOD SUC 40 MG/1 ML VIAL IV SCH ×3 (01:06→20:58)
[2020-09-08] MEDS: ALBUTEROL/IPRATROPIUM 3 ML NEB RESP TX SCH ×4 (01:15→20:13)
[2020-09-08 05:17] LABS: Basophils % 0.1 % (0.0-0.8); Hematocrit 33.8 VOL% (35.7-47.0); Hemoglobin 10.1 GM/DL (12.0-16.0); Immature Granulocytes % 1.1 %; Immature Granulocytes Absolute 0.32 #; Lymphocytes # 0.2 10*3/uL (1.4-4.0); Lymphocytes % 0.8 % (21.3-54.2); Mean Corpuscular HGB Conc 29.9 GM/DL (32-36); Mean Corpuscular Volume 94.7 FL (87-102); Mean Platelet Volume 12.1 FL (9.6-12.0); Monocytes % 2.2 % (1.7-12.7); NRBC # 0.03 10*3/uL; Neutrophils % 95.8 % (38.7-73.9); Platelet Count 88 T/CUMM (130-400); Red Blood Count 3.57 MC/CUMM (3.8-5.5)
[2020-09-08 05:45] LABS: Calcium 9.2 MG/DL (8.5-10.1); Osmolality,Calculated 305.8 MOS/KG (273-304)
[2020-09-08 06:20] LABS: Anisocytosis 1+; Band Neutrophils 6 % (0-10); Lymphocytes 1 % (20-55); Platelet Estimate Decreased; Segmented Neutrophils 93 % (50-85); Smudge Cells Few; Target Cells Few; Total Cells Counted 100
[2020-09-08 06:21] LABS: Macrocytosis Slight
[2020-09-08] MEDS: METOPROLOL TARTRATE 25 MG TABLET PO SCH ×2 (08:41→20:57)
[2020-09-08] MEDS: NYSTATIN POWDER 15 GM BOTTLE TOP SCH ×2 (08:41→20:58)
[2020-09-08] MEDS: INSULIN GLARGINE 100 UNIT/ML SUBCUT SCH (08:41)
[2020-09-09] MEDS: ALBUTEROL/IPRATROPIUM 3 ML NEB RESP TX SCH ×4 (00:06→19:23)
[2020-09-09] MEDS: INSULIN LISPRO 100 UNIT/ML SUBCUT SCH ×4 (01:48→16:37)
[2020-09-09] MEDS: METOPROLOL TARTRATE 25 MG TABLET PO SCH ×2 (08:33→22:06)
[2020-09-09] MEDS: methylPREDNISolone SOD SUC 40 MG/1 ML VIAL IV SCH ×2 (08:34→22:06)
[2020-09-09] MEDS: INSULIN GLARGINE 100 UNIT/ML SUBCUT SCH (08:34)
[2020-09-09] MEDS: NYSTATIN POWDER 15 GM BOTTLE TOP SCH ×2 (08:35→22:12)
[2020-09-09 09:43] LABS: Calcium 8.6 MG/DL (8.5-10.1); Osmolality,Calculated 309.8 MOS/KG (273-304); Potassium 5.2 MMOL/L (3.5-5.1)
[2020-09-09 10:11] LABS: Basophils % 0.1 % (0.0-0.8); Hematocrit 33.1 VOL% (35.7-47.0); Hemoglobin 10.1 GM/DL (12.0-16.0); Immature Granulocytes Absolute 0.25 #; Lymphocytes # 0.3 10*3/uL (1.4-4.0); Lymphocytes % 1.4 % (21.3-54.2); Mean Corpuscular HGB Conc 30.5 GM/DL (32-36); Mean Corpuscular Volume 95.1 FL (87-102); Mean Platelet Volume 12.1 FL (9.6-12.0); Monocytes % 1.8 % (1.7-12.7); NRBC # 0.03 10*3/uL; Neutrophils % 95.7 % (38.7-73.9); Platelet Count 54 T/CUMM (130-400); Red Blood Count 3.48 MC/CUMM (3.8-5.5); Red Cell Distribution Width 18.6 % (9.3-17.3)
[2020-09-09 10:53] LABS: Hypochromasia 1+; Lymphocytes 2 % (20-55); Microcytosis 1+; Platelet Estimate Decreased; Polychromasia Slight; Segmented Neutrophils 97 % (50-85); Total Cells Counted 100
[2020-09-10] MEDS: ALBUTEROL/IPRATROPIUM 3 ML NEB RESP TX SCH ×4 (01:05→19:11)
[2020-09-10] MEDS: INSULIN LISPRO 100 UNIT/ML SUBCUT SCH ×4 (06:03→19:00)
[2020-09-10 06:50] LABS: Basophils % 0.1 % (0.0-0.8); Hematocrit 31.9 VOL% (35.7-47.0); Hemoglobin 9.6 GM/DL (12.0-16.0); Immature Granulocytes % 0.5 %; Immature Granulocytes Absolute 0.08 #; Lymphocytes # 0.2 10*3/uL (1.4-4.0); Lymphocytes % 1.5 % (21.3-54.2); Mean Corpuscular HGB Conc 30.1 GM/DL (32-36); Mean Corpuscular Volume 95.2 FL (87-102); Neutrophils % 95.9 % (38.7-73.9); Platelet Count 47 T/CUMM (130-400); Red Blood Count 3.35 MC/CUMM (3.8-5.5); Red Cell Distribution Width 19.2 % (9.3-17.3); White Blood Count 14.9 T/CUMM (4-12)
[2020-09-10 06:55] LABS: Calcium 8.7 MG/DL (8.5-10.1); Osmolality,Calculated 308.7 MOS/KG (273-304); Potassium 5.9 MMOL/L (3.5-5.1)
[2020-09-10 07:25] LABS: Band Neutrophils 1 % (0-10); Hypochromasia 1+; Lymphocytes 2 % (20-55); Segmented Neutrophils 95 % (50-85); Total Cells Counted 100
[2020-09-10 07:26] LABS: Microcytosis 1+; Platelet Estimate Decreased; Polychromasia Slight
[2020-09-10] MEDS: INSULIN GLARGINE 100 UNIT/ML SUBCUT SCH (09:50)
[2020-09-10] MEDS: NYSTATIN POWDER 15 GM BOTTLE TOP SCH ×2 (09:50→21:02)
[2020-09-10] MEDS: methylPREDNISolone SOD SUC 40 MG/1 ML VIAL IV SCH ×2 (09:50→21:00)
[2020-09-10] MEDS: METOPROLOL TARTRATE 25 MG TABLET PO SCH ×2 (09:55→21:00)
[2020-09-10] MEDS: SODIUM ZIRCONIUM CYCLOSILICATE 10 GM PACK PO SCH ×3 (13:15→21:01)
[2020-09-10] MEDS: LEVOFLOXACIN INJ 750 MG/150 ML PREMIX IV SCH (14:32)
[2020-09-11] MEDS: INSULIN LISPRO 100 UNIT/ML SUBCUT SCH ×4 (00:29→16:30)
[2020-09-11] MEDS: ALBUTEROL/IPRATROPIUM 3 ML NEB RESP TX SCH ×4 (00:32→19:27)
[2020-09-11 05:13] LABS: Hematocrit 30.6 VOL% (35.7-47.0); Hemoglobin 9.2 GM/DL (12.0-16.0); Immature Granulocytes % 0.3 %; Immature Granulocytes Absolute 0.03 #; Lymphocytes # 0.2 10*3/uL (1.4-4.0); Lymphocytes % 1.7 % (21.3-54.2); Mean Corpuscular HGB Conc 30.1 GM/DL (32-36); Mean Corpuscular Volume 95.9 FL (87-102); Monocytes % 1.9 % (1.7-12.7); NRBC # 0.02 10*3/uL; Neutrophils % 96.1 % (38.7-73.9); Platelet Count 45 T/CUMM (130-400); Red Blood Count 3.19 MC/CUMM (3.8-5.5); White Blood Count 8.9 T/CUMM (4-12)
[2020-09-11 05:14] LABS: Calcium 8.6 MG/DL (8.5-10.1); Osmolality,Calculated 317.9 MOS/KG (273-304); Potassium 4.4 MMOL/L (3.5-5.1)
[2020-09-11 05:34] LABS: Hypochromasia 1+; Lymphocytes 1 % (20-55); Microcytosis 1+; Platelet Estimate Decreased; Segmented Neutrophils 99 % (50-85); Total Cells Counted 100
[2020-09-11] MEDS: INSULIN GLARGINE 100 UNIT/ML SUBCUT SCH (08:28)
[2020-09-11] MEDS: methylPREDNISolone SOD SUC 40 MG/1 ML VIAL IV SCH (08:28)
[2020-09-11] MEDS: METOPROLOL TARTRATE 25 MG TABLET PO SCH ×2 (08:28→22:38)
[2020-09-11] MEDS: NYSTATIN POWDER 15 GM BOTTLE TOP SCH ×2 (08:29→22:44)
[2020-09-11] MEDS: DEXTROSE 5% 1,000 ML IV SCH ×2 (09:10→17:29)
[2020-09-11] MEDS: LEVOFLOXACIN INJ 750 MG/150 ML PREMIX IV SCH (12:31)
[2020-09-12] MEDS: ALBUTEROL/IPRATROPIUM 3 ML NEB RESP TX SCH ×4 (01:32→19:32)
[2020-09-12] MEDS: INSULIN LISPRO 100 UNIT/ML SUBCUT SCH ×4 (03:04→18:33)
[2020-09-12] MEDS: DEXTROSE 5% 1,000 ML IV SCH ×3 (03:14→19:15)
[2020-09-12 05:54] LABS: Hemoglobin 9.6 GM/DL (12.0-16.0); Immature Granulocytes % 0.4 %; Immature Granulocytes Absolute 0.03 #; Lymphocytes # 0.2 10*3/uL (1.4-4.0); Lymphocytes % 3.4 % (21.3-54.2); Mean Corpuscular Volume 98.8 FL (87-102); Mean Platelet Volume 12.8 FL (9.6-12.0); Monocytes % 3.8 % (1.7-12.7); NRBC # 0.02 10*3/uL; Neutrophils % 92.4 % (38.7-73.9); Red Blood Count 3.24 MC/CUMM (3.8-5.5); White Blood Count 6.8 T/CUMM (4-12)
[2020-09-12 06:11] LABS: Calcium 8.9 MG/DL (8.5-10.1); Osmolality,Calculated 316.1 MOS/KG (273-304); Potassium 3.8 MMOL/L (3.5-5.1)
[2020-09-12 06:38] LABS: Platelet Count 37 T/CUMM (130-400)
[2020-09-12 06:47] LABS: Hypochromasia 1+; Lymphocytes 2 % (20-55); Microcytosis 1+; Platelet Estimate Decreased; Segmented Neutrophils 94 % (50-85); Total Cells Counted 100
[2020-09-12] MEDS: METOPROLOL TARTRATE 25 MG TABLET PO SCH (09:54)
[2020-09-12] MEDS: predniSONE 20 MG TABLET PO SCH (09:55)
[2020-09-12] MEDS: NYSTATIN POWDER 15 GM BOTTLE TOP SCH (09:56)
[2020-09-12] MEDS: INSULIN GLARGINE 100 UNIT/ML SUBCUT SCH (09:56)
[2020-09-12] MEDS: LEVOFLOXACIN INJ 750 MG/150 ML PREMIX IV SCH (17:20)
[2020-09-13] MEDS: INSULIN LISPRO 100 UNIT/ML SUBCUT SCH ×5 (00:39→23:30)
[2020-09-13] MEDS: NYSTATIN POWDER 15 GM BOTTLE TOP SCH ×3 (00:41→21:02)
[2020-09-13] MEDS: METOPROLOL TARTRATE 25 MG TABLET PO SCH ×3 (00:41→21:02)
[2020-09-13] MEDS: ALBUTEROL/IPRATROPIUM 3 ML NEB RESP TX SCH ×4 (00:54→19:48)
[2020-09-13] MEDS: DEXTROSE 5% 1,000 ML IV SCH ×2 (07:20→23:17)
[2020-09-13 08:05] LABS: Calcium 8.3 MG/DL (8.5-10.1); Osmolality,Calculated 296.8 MOS/KG (273-304); Potassium 3.9 MMOL/L (3.5-5.1)
[2020-09-13 08:33] LABS: Eosinophils % 0.5 % (0.00-10.9); Hematocrit 29.9 VOL% (35.7-47.0); Immature Granulocytes % 0.9 %; Immature Granulocytes Absolute 0.06 #; Lymphocytes # 0.3 10*3/uL (1.4-4.0); Lymphocytes % 4.5 % (21.3-54.2); Mean Corpuscular HGB Conc 30.1 GM/DL (32-36); Mean Corpuscular Volume 95.5 FL (87-102); Monocytes % 3.4 % (1.7-12.7); NRBC # 0.03 10*3/uL; Neutrophils % 90.7 % (38.7-73.9); Red Blood Count 3.13 MC/CUMM (3.8-5.5); Red Cell Distribution Width 18.3 % (9.3-17.3); White Blood Count 6.5 T/CUMM (4-12)
[2020-09-13 08:36] LABS: Platelet Count 35 T/CUMM (130-400)
[2020-09-13] MEDS ORDERED: MAGNESIUM SULF RIDER 4 GM/100 ML PREMIX IV ONE (09:00)
[2020-09-13 09:16] LABS: Band Neutrophils 3 % (0-10); Hypochromasia 1+; Lymphocytes 2 % (20-55); Microcytosis 1+; Ovalocytes Slight; Segmented Neutrophils 88 % (50-85); Total Cells Counted 100
[2020-09-13 09:17] LABS: Platelet Estimate Decreased
[2020-09-13] MEDS: predniSONE 20 MG TABLET PO SCH (09:52)
[2020-09-13] MEDS: INSULIN GLARGINE 100 UNIT/ML SUBCUT SCH (09:53)
[2020-09-13] MEDS: LEVOFLOXACIN INJ 750 MG/150 ML PREMIX IV SCH (17:32)
[2020-09-13 19:57] LABS: HIT Interpretation Negative (Negative)
[2020-09-13] MEDS: LACTOBACILLUS RHAMNOSUS GG CAPSULE PER TUBE SCH (21:02)
[2020-09-14] MEDS: ALBUTEROL/IPRATROPIUM 3 ML NEB RESP TX SCH ×4 (01:57→20:35)
[2020-09-14] MEDS: INSULIN LISPRO 100 UNIT/ML SUBCUT SCH ×3 (05:43→18:58)
[2020-09-14 06:47] LABS: Basophils % 0.3 % (0.0-0.8); Eosinophils % 0.2 % (0.00-10.9); Hematocrit 29.3 VOL% (35.7-47.0); Hemoglobin 9.4 GM/DL (12.0-16.0); Immature Granulocytes % 0.9 %; Immature Granulocytes Absolute 0.06 #; Lymphocytes # 0.2 10*3/uL (1.4-4.0); Lymphocytes % 3.4 % (21.3-54.2); Mean Corpuscular HGB Conc 32.1 GM/DL (32-36); Mean Corpuscular Volume 96.4 FL (87-102); Mean Platelet Volume 13.4 FL (9.6-12.0); NRBC # 0.02 10*3/uL; Neutrophils % 92.2 % (38.7-73.9); Red Blood Count 3.04 MC/CUMM (3.8-5.5); Red Cell Distribution Width 18.5 % (9.3-17.3); White Blood Count 6.4 T/CUMM (4-12)
[2020-09-14 06:48] LABS: Platelet Count 37 T/CUMM (130-400)
[2020-09-14 07:11] LABS: Band Neutrophils 1 % (0-10); Lymphocytes 3 % (20-55); Platelet Estimate Decreased; Segmented Neutrophils 92 % (50-85); Total Cells Counted 100
[2020-09-14 07:12] LABS: Calcium 8.3 MG/DL (8.5-10.1); Hypochromasia 1+; Microcytosis 1+; Osmolality,Calculated 282.7 MOS/KG (273-304); Potassium 4.1 MMOL/L (3.5-5.1)
[2020-09-14 07:19] LABS: Calcium 8.2 MG/DL (8.5-10.1); Osmolality,Calculated 283.7 MOS/KG (273-304); Potassium 4.2 MMOL/L (3.5-5.1)
[2020-09-14] MEDS: predniSONE 20 MG TABLET PO SCH (10:36)
[2020-09-14] MEDS: LACTOBACILLUS RHAMNOSUS GG CAPSULE PER TUBE SCH ×2 (10:36→21:17)
[2020-09-14] MEDS: METOPROLOL TARTRATE 25 MG TABLET PO SCH ×2 (10:36→21:18)
[2020-09-14] MEDS: INSULIN GLARGINE 100 UNIT/ML SUBCUT SCH (10:37)
[2020-09-14] MEDS: DEXTROSE 5% 1,000 ML IV SCH (10:37)
[2020-09-14] MEDS: NYSTATIN POWDER 15 GM BOTTLE TOP SCH ×2 (10:38→21:18)
[2020-09-14] MEDS: WHEAT DEXTRIN POWDER 244 GM BOTTLE PEG SCH ×2 (15:59→21:17)
[2020-09-14] MEDS: LEVOFLOXACIN INJ 750 MG/150 ML PREMIX IV SCH (17:14)
[2020-09-15] MEDS: ALBUTEROL/IPRATROPIUM 3 ML NEB RESP TX SCH ×4 (00:25→19:57)
[2020-09-15] MEDS: INSULIN LISPRO 100 UNIT/ML SUBCUT SCH ×4 (00:54→19:02)
[2020-09-15 08:33] LABS: Basophils % 0.1 % (0.0-0.8); Eosinophils % 0.1 % (0.00-10.9); Hematocrit 28.5 VOL% (35.7-47.0); Hemoglobin 9.1 GM/DL (12.0-16.0); Immature Granulocytes % 1.1 %; Immature Granulocytes Absolute 0.08 #; Lymphocytes # 0.3 10*3/uL (1.4-4.0); Lymphocytes % 3.6 % (21.3-54.2); Mean Corpuscular HGB Conc 31.9 GM/DL (32-36); Mean Corpuscular Volume 94.7 FL (87-102); Mean Platelet Volume 12.5 FL (9.6-12.0); Monocytes % 2.6 % (1.7-12.7); Neutrophils % 92.5 % (38.7-73.9); Red Blood Count 3.01 MC/CUMM (3.8-5.5); Red Cell Distribution Width 17.9 % (9.3-17.3); White Blood Count 7.4 T/CUMM (4-12)
[2020-09-15 08:40] LABS: Platelet Count 30 T/CUMM (130-400)
[2020-09-15 08:57] LABS: Calcium 8.4 MG/DL (8.5-10.1); Potassium 4.5 MMOL/L (3.5-5.1)
[2020-09-15 09:09] LABS: Anisocytosis 1+; Band Neutrophils 17 % (0-10); Basophilic Stippling Slight; Lymphocytes 1 % (20-55); Macrocytosis 1+; Platelet Estimate Decreased; Segmented Neutrophils 77 % (50-85); Total Cells Counted 100
[2020-09-15] MEDS: LACTOBACILLUS RHAMNOSUS GG CAPSULE PER TUBE SCH ×2 (10:31→21:54)
[2020-09-15] MEDS: METOPROLOL TARTRATE 25 MG TABLET PO SCH ×2 (10:31→21:54)
[2020-09-15] MEDS: INSULIN GLARGINE 100 UNIT/ML SUBCUT SCH (10:31)
[2020-09-15] MEDS: WHEAT DEXTRIN POWDER 244 GM BOTTLE PEG SCH ×3 (10:31→21:54)
[2020-09-15] MEDS: NYSTATIN POWDER 15 GM BOTTLE TOP SCH ×2 (10:32→21:54)
[2020-09-15] MEDS: predniSONE 20 MG TABLET PO SCH (10:32)
[2020-09-16] MEDS: ALBUTEROL/IPRATROPIUM 3 ML NEB RESP TX SCH ×4 (01:30→19:32)
[2020-09-16] MEDS: INSULIN LISPRO 100 UNIT/ML SUBCUT SCH ×5 (04:05→23:36)
[2020-09-16 04:43] LABS: Basophils % 0.1 % (0.0-0.8); Eosinophils % 0.4 % (0.00-10.9); Hemoglobin 9.1 GM/DL (12.0-16.0); Immature Granulocytes % 0.9 %; Immature Granulocytes Absolute 0.07 #; Lymphocytes # 0.4 10*3/uL (1.4-4.0); Lymphocytes % 5.1 % (21.3-54.2); Mean Corpuscular HGB Conc 30.3 GM/DL (32-36); Mean Corpuscular Volume 94.3 FL (87-102); Monocytes % 2.9 % (1.7-12.7); Neutrophils % 90.6 % (38.7-73.9); Red Blood Count 3.18 MC/CUMM (3.8-5.5); Red Cell Distribution Width 18.4 % (9.3-17.3)
[2020-09-16 04:50] LABS: Platelet Count 38 T/CUMM (130-400)
[2020-09-16 04:51] LABS: INR 1.1; PT Patient Result 11.8 SECS (10.5-12.0); Partial Thromboplastin Time 26.9 SECS (23.9-33.8)
[2020-09-16 05:06] LABS: Band Neutrophils 1 % (0-10); Calcium 8.2 MG/DL (8.5-10.1); Hypochromasia 1+; Lymphocytes 2 % (20-55); Microcytosis 1+; Osmolality,Calculated 283.1 MOS/KG (273-304); Platelet Estimate Decreased; Potassium 3.9 MMOL/L (3.5-5.1); Segmented Neutrophils 95 % (50-85); Total Cells Counted 100
[2020-09-16] MEDS ORDERED: predniSONE 20 MG TABLET PO ONE (09:00)
[2020-09-16] MEDS: INSULIN GLARGINE 100 UNIT/ML SUBCUT SCH (09:00)
[2020-09-16] MEDS: METOPROLOL TARTRATE 25 MG TABLET PO SCH ×2 (10:35→20:34)
[2020-09-16] MEDS: LACTOBACILLUS RHAMNOSUS GG CAPSULE PER TUBE SCH ×2 (10:35→20:35)
[2020-09-16] MEDS: WHEAT DEXTRIN POWDER 244 GM BOTTLE PEG SCH ×3 (10:35→20:31)
[2020-09-16] MEDS: NYSTATIN POWDER 15 GM BOTTLE TOP SCH ×2 (10:36→20:31)
[2020-09-17] MEDS: ALBUTEROL/IPRATROPIUM 3 ML NEB RESP TX SCH ×4 (00:19→19:23)
[2020-09-17] MEDS: INSULIN LISPRO 100 UNIT/ML SUBCUT SCH ×3 (06:15→17:05)
[2020-09-17 06:52] LABS: Basophils % 0.1 % (0.0-0.8); Eosinophils # 0.1 10*3/uL (0.0-0.87); Eosinophils % 0.6 % (0.00-10.9); Hematocrit 30.8 VOL% (35.7-47.0); Hemoglobin 9.2 GM/DL (12.0-16.0); Immature Granulocytes % 0.9 %; Immature Granulocytes Absolute 0.08 #; Lymphocytes # 0.4 10*3/uL (1.4-4.0); Lymphocytes % 4.7 % (21.3-54.2); Mean Corpuscular HGB Conc 29.9 GM/DL (32-36); Mean Platelet Volume 12.2 FL (9.6-12.0); Monocytes % 2.8 % (1.7-12.7); Neutrophils % 90.9 % (38.7-73.9); Red Blood Count 3.21 MC/CUMM (3.8-5.5); Red Cell Distribution Width 18.8 % (9.3-17.3); White Blood Count 8.7 T/CUMM (4-12)
[2020-09-17 06:55] LABS: Platelet Count 46 T/CUMM (130-400)
[2020-09-17 07:30] LABS: Band Neutrophils 3 % (0-10); Hypochromasia 1+; Lymphocytes 2 % (20-55); Microcytosis 1+; Nucleated Red Blood Cells 1 (0-5); Platelet Estimate Decreased; Segmented Neutrophils 92 % (50-85); Total Cells Counted 100
[2020-09-17] MEDS ORDERED: predniSONE 10 MG TABLET PO ONE (09:00)
[2020-09-17] MEDS: LACTOBACILLUS RHAMNOSUS GG CAPSULE PER TUBE SCH ×2 (10:16→21:35)
[2020-09-17] MEDS: METOPROLOL TARTRATE 25 MG TABLET PO SCH ×2 (10:16→21:35)
[2020-09-17] MEDS: NYSTATIN POWDER 15 GM BOTTLE TOP SCH ×2 (10:17→21:37)
[2020-09-17] MEDS: INSULIN GLARGINE 100 UNIT/ML SUBCUT SCH (10:17)
[2020-09-17] MEDS: WHEAT DEXTRIN POWDER 244 GM BOTTLE PEG SCH ×3 (10:17→21:37)
[2020-09-18] MEDS: INSULIN LISPRO 100 UNIT/ML SUBCUT SCH ×4 (00:47→18:25)
[2020-09-18] MEDS: ALBUTEROL/IPRATROPIUM 3 ML NEB RESP TX SCH ×4 (01:00→19:49)
[2020-09-18 07:41] LABS: Calcium 8.4 MG/DL (8.5-10.1); Osmolality,Calculated 295.3 MOS/KG (273-304); Potassium 3.7 MMOL/L (3.5-5.1)
[2020-09-18] MEDS: WHEAT DEXTRIN POWDER 244 GM BOTTLE PEG SCH ×3 (08:35→21:41)
[2020-09-18] MEDS: INSULIN GLARGINE 100 UNIT/ML SUBCUT SCH (08:35)
[2020-09-18] MEDS: LACTOBACILLUS RHAMNOSUS GG CAPSULE PER TUBE SCH ×2 (08:45→21:41)
[2020-09-18] MEDS: METOPROLOL TARTRATE 25 MG TABLET PO SCH ×2 (08:48→21:41)
[2020-09-18] MEDS: NYSTATIN POWDER 15 GM BOTTLE TOP SCH ×2 (08:49→21:41)
[2020-09-18] MEDS ORDERED: predniSONE 20 MG TABLET PO ONE (09:00)
[2020-09-18] MEDS ORDERED: SODIUM CHLORIDE 0.9% 1,000 ML IV ONE (16:16)
[2020-09-19] MEDS: INSULIN LISPRO 100 UNIT/ML SUBCUT SCH ×4 (00:36→18:07)
[2020-09-19] MEDS: ALBUTEROL/IPRATROPIUM 3 ML NEB RESP TX SCH ×4 (00:40→19:45)
[2020-09-19 04:49] LABS: Basophils % 0.1 % (0.0-0.8); Eosinophils # 0.1 10*3/uL (0.0-0.87); Eosinophils % 1.2 % (0.00-10.9); Hematocrit 30.2 VOL% (35.7-47.0); Immature Granulocytes % 0.6 %; Immature Granulocytes Absolute 0.05 #; Lymphocytes # 0.7 10*3/uL (1.4-4.0); Lymphocytes % 8.7 % (21.3-54.2); Mean Corpuscular HGB Conc 29.8 GM/DL (32-36); Mean Corpuscular Volume 97.4 FL (87-102); Neutrophils % 85.4 % (38.7-73.9); White Blood Count 8.2 T/CUMM (4-12)
[2020-09-19 04:53] LABS: Platelet Count 70 T/CUMM (130-400)
[2020-09-19 05:02] LABS: Calcium 8.2 MG/DL (8.5-10.1); Osmolality,Calculated 297.3 MOS/KG (273-304); Potassium 3.7 MMOL/L (3.5-5.1)
[2020-09-19 05:13] LABS: Band Neutrophils 4 % (0-10); Eosinophils 1 % (0-10); Lymphocytes 5 % (20-55); Nucleated Red Blood Cells 1 (0-5); Segmented Neutrophils 83 % (50-85); Total Cells Counted 100
[2020-09-19 05:14] LABS: Hypochromasia 1+; Microcytosis 1+; Polychromasia Slight
[2020-09-19 05:15] LABS: Ovalocytes Slight; Platelet Estimate Decreased
[2020-09-19] MEDS ORDERED: predniSONE 10 MG TABLET PO ONE (09:00)
[2020-09-19] MEDS: INSULIN GLARGINE 100 UNIT/ML SUBCUT SCH (10:36)
[2020-09-19] MEDS: WHEAT DEXTRIN POWDER 244 GM BOTTLE PEG SCH ×3 (10:36→20:48)
[2020-09-19] MEDS: LACTOBACILLUS RHAMNOSUS GG CAPSULE PER TUBE SCH ×2 (10:36→20:48)
[2020-09-19] MEDS: NYSTATIN POWDER 15 GM BOTTLE TOP SCH ×2 (10:37→20:48)
[2020-09-19] MEDS: METOPROLOL TARTRATE 25 MG TABLET PO SCH ×2 (10:37→20:47)
[2020-09-19] MEDS: DEXTROSE 5% 1,000 ML IV SCH (13:05)
[2020-09-20] MEDS: INSULIN LISPRO 100 UNIT/ML SUBCUT SCH ×5 (00:17→23:50)
[2020-09-20] MEDS: ALBUTEROL/IPRATROPIUM 3 ML NEB RESP TX SCH ×4 (00:45→19:41)
[2020-09-20] MEDS: DEXTROSE 5% 1,000 ML IV SCH ×3 (01:45→21:06)
[2020-09-20 05:35] LABS: Basophils % 0.2 % (0.0-0.8); Eosinophils # 0.1 10*3/uL (0.0-0.87); Eosinophils % 0.9 % (0.00-10.9); Hematocrit 25.2 VOL% (35.7-47.0); Hemoglobin 8.1 GM/DL (12.0-16.0); Immature Granulocytes % 0.7 %; Immature Granulocytes Absolute 0.06 #; Lymphocytes # 0.7 10*3/uL (1.4-4.0); Lymphocytes % 8.7 % (21.3-54.2); Mean Corpuscular HGB Conc 32.1 GM/DL (32-36); Mean Corpuscular Volume 98.8 FL (87-102); Mean Platelet Volume 12.3 FL (9.6-12.0); Monocytes % 3.6 % (1.7-12.7); Neutrophils % 85.9 % (38.7-73.9); Platelet Count 63 T/CUMM (130-400); Red Blood Count 2.55 MC/CUMM (3.8-5.5); Red Cell Distribution Width 20.4 % (9.3-17.3); White Blood Count 8.2 T/CUMM (4-12)
[2020-09-20 06:00] LABS: Band Neutrophils 3 % (0-10); Platelet Estimate Decreased; Segmented Neutrophils 92 % (50-85); Total Cells Counted 100
[2020-09-20 06:01] LABS: Calcium 8.1 MG/DL (8.5-10.1); Hypochromasia Slight; Potassium 3.6 MMOL/L (3.5-5.1)
[2020-09-20] MEDS: INSULIN GLARGINE 100 UNIT/ML SUBCUT SCH (09:04)
[2020-09-20] MEDS: LACTOBACILLUS RHAMNOSUS GG CAPSULE PER TUBE SCH ×2 (09:04→20:54)
[2020-09-20] MEDS: METOPROLOL TARTRATE 25 MG TABLET PO SCH ×2 (09:04→20:53)
[2020-09-20] MEDS: NYSTATIN POWDER 15 GM BOTTLE TOP SCH ×2 (09:05→20:54)
[2020-09-20] MEDS: WHEAT DEXTRIN POWDER 244 GM BOTTLE PEG SCH ×3 (12:31→21:24)
[2020-09-20] MEDS: MAGNESIUM SULF RIDER 2 GM/50 ML PREMIX IV PRN (12:47)
[2020-09-21] MEDS: ALBUTEROL/IPRATROPIUM 3 ML NEB RESP TX SCH ×4 (00:29→19:25)
[2020-09-21 04:26] LABS: Basophils % 0.1 % (0.0-0.8); Eosinophils # 0.1 10*3/uL (0.0-0.87); Eosinophils % 1.2 % (0.00-10.9); Hemoglobin 8.5 GM/DL (12.0-16.0); Immature Granulocytes % 1.2 %; Immature Granulocytes Absolute 0.09 #; Lymphocytes # 0.6 10*3/uL (1.4-4.0); Lymphocytes % 7.3 % (21.3-54.2); Mean Corpuscular HGB Conc 32.7 GM/DL (32-36); Mean Corpuscular Volume 99.2 FL (87-102); Mean Platelet Volume 12.2 FL (9.6-12.0); Monocytes % 2.8 % (1.7-12.7); Neutrophils % 87.4 % (38.7-73.9); Red Blood Count 2.62 MC/CUMM (3.8-5.5); Red Cell Distribution Width 20.9 % (9.3-17.3); White Blood Count 7.5 T/CUMM (4-12)
[2020-09-21 04:34] LABS: Osmolality,Calculated 276.5 MOS/KG (273-304); Potassium 3.3 MMOL/L (3.5-5.1)
[2020-09-21 04:55] LABS: Platelet Count 76 T/CUMM (130-400)
[2020-09-21 05:09] LABS: Band Neutrophils 9 % (0-10); Eosinophils 1 % (0-10); Lymphocytes 3 % (20-55); Segmented Neutrophils 86 % (50-85); Total Cells Counted 100
[2020-09-21 05:10] LABS: Hypochromasia Slight; Microcytosis 1+
[2020-09-21 05:11] LABS: Platelet Estimate Decreased; Polychromasia Slight
[2020-09-21] MEDS: INSULIN LISPRO 100 UNIT/ML SUBCUT SCH ×4 (05:34→23:34)
[2020-09-21] MEDS: METOPROLOL TARTRATE 25 MG TABLET PO SCH ×3 (08:36→20:55)
[2020-09-21] MEDS: INSULIN GLARGINE 100 UNIT/ML SUBCUT SCH (08:36)
[2020-09-21] MEDS: LACTOBACILLUS RHAMNOSUS GG CAPSULE PER TUBE SCH ×2 (08:36→20:56)
[2020-09-21] MEDS: WHEAT DEXTRIN POWDER 244 GM BOTTLE PEG SCH ×3 (08:37→20:56)
[2020-09-21] MEDS: NYSTATIN POWDER 15 GM BOTTLE TOP SCH ×2 (08:37→20:56)
[2020-09-21] MEDS: DEXTROSE 5% 1,000 ML IV SCH (08:37)
[2020-09-21] MEDS ORDERED: POTASSIUM CHLORIDE 20 MEQ/15 ML UDCUP PO ONE (14:00)
[2020-09-22] MEDS: ALBUTEROL/IPRATROPIUM 3 ML NEB RESP TX SCH ×4 (00:34→19:25)
[2020-09-22] MEDS: DEXTROSE 50% 25 GM/50 ML VIAL IV PRN (05:15)
[2020-09-22] MEDS: INSULIN LISPRO 100 UNIT/ML SUBCUT SCH ×3 (05:17→17:55)
[2020-09-22 05:22] LABS: Basophils % 0.5 % (0.0-0.8); Eosinophils # 0.1 10*3/uL (0.0-0.87); Eosinophils % 0.7 % (0.00-10.9); Hematocrit 27.2 VOL% (35.7-47.0); Hemoglobin 8.5 GM/DL (12.0-16.0); Immature Granulocytes % 1.4 %; Immature Granulocytes Absolute 0.12 #; Lymphocytes # 0.9 10*3/uL (1.4-4.0); Lymphocytes % 10.9 % (21.3-54.2); Mean Corpuscular HGB Conc 31.3 GM/DL (32-36); Mean Corpuscular Volume 96.1 FL (87-102); Mean Platelet Volume 11.8 FL (9.6-12.0); Monocytes % 3.3 % (1.7-12.7); Neutrophils % 83.2 % (38.7-73.9); Platelet Count 100 T/CUMM (130-400); Red Blood Count 2.83 MC/CUMM (3.8-5.5); Red Cell Distribution Width 19.6 % (9.3-17.3); White Blood Count 8.5 T/CUMM (4-12)
[2020-09-22 05:48] LABS: Calcium 7.9 MG/DL (8.5-10.1); Osmolality,Calculated 275.4 MOS/KG (273-304); Potassium 3.7 MMOL/L (3.5-5.1)
[2020-09-22 06:14] LABS: Band Neutrophils 8 % (0-10); Lymphocytes 6 % (20-55); Segmented Neutrophils 83 % (50-85); Total Cells Counted 100
[2020-09-22 06:15] LABS: Anisocytosis 1+; Hypochromasia Slight; Microcytosis 1+; Polychromasia Slight
[2020-09-22 06:16] LABS: Platelet Estimate Decreased
[2020-09-22] MEDS: WHEAT DEXTRIN POWDER 244 GM BOTTLE PEG SCH ×3 (09:21→21:33)
[2020-09-22] MEDS: NYSTATIN POWDER 15 GM BOTTLE TOP SCH ×2 (09:21→21:33)
[2020-09-22] MEDS: LACTOBACILLUS RHAMNOSUS GG CAPSULE PER TUBE SCH ×2 (09:21→21:32)
[2020-09-22] MEDS: METOPROLOL TARTRATE 25 MG TABLET PO SCH ×2 (09:21→21:32)
[2020-09-22] MEDS: MENTHOL/ZINC OXIDE OINT 71 GM JAR TOP SCH ×2 (13:59→21:33)
[2020-09-23] MEDS: INSULIN LISPRO 100 UNIT/ML SUBCUT SCH ×4 (01:51→17:35)
[2020-09-23] MEDS: ALBUTEROL/IPRATROPIUM 3 ML NEB RESP TX SCH ×4 (02:08→19:34)
[2020-09-23] MEDS: DEXTROSE 50% 25 GM/50 ML VIAL IV PRN (05:34)
[2020-09-23] MEDS: METOPROLOL TARTRATE 25 MG TABLET PO SCH ×2 (09:27→21:37)
[2020-09-23] MEDS: WHEAT DEXTRIN POWDER 244 GM BOTTLE PEG SCH ×3 (11:10→21:37)
[2020-09-23] MEDS: LACTOBACILLUS RHAMNOSUS GG CAPSULE PER TUBE SCH ×2 (11:10→21:37)
[2020-09-23] MEDS: MENTHOL/ZINC OXIDE OINT 71 GM JAR TOP SCH ×2 (11:10→21:37)
[2020-09-23] MEDS: NYSTATIN POWDER 15 GM BOTTLE TOP SCH ×2 (11:10→21:37)
[2020-09-24] MEDS: INSULIN LISPRO 100 UNIT/ML SUBCUT SCH ×5 (00:48→23:48)
[2020-09-24] MEDS: ALBUTEROL/IPRATROPIUM 3 ML NEB RESP TX SCH ×4 (01:15→18:56)
[2020-09-24 06:34] LABS: Basophils % 0.4 % (0.0-0.8); Eosinophils % 0.5 % (0.00-10.9); Hematocrit 26.3 VOL% (35.7-47.0); Hemoglobin 8.3 GM/DL (12.0-16.0); Immature Granulocytes Absolute 0.11 #; Lymphocytes # 0.8 10*3/uL (1.4-4.0); Lymphocytes % 14.4 % (21.3-54.2); Mean Corpuscular HGB Conc 31.6 GM/DL (32-36); Mean Platelet Volume 11.8 FL (9.6-12.0); Monocytes % 5.5 % (1.7-12.7); Neutrophils % 77.2 % (38.7-73.9); Platelet Count 101 T/CUMM (130-400); Red Blood Count 2.71 MC/CUMM (3.8-5.5); White Blood Count 5.5 T/CUMM (4-12)
[2020-09-24 06:39] LABS: Calcium 7.9 MG/DL (8.5-10.1); Osmolality,Calculated 276.8 MOS/KG (273-304); Potassium 4.2 MMOL/L (3.5-5.1)
[2020-09-24 07:09] LABS: Lymphocytes 4 % (20-55); Platelet Estimate Normal; Polychromasia 1+; Segmented Neutrophils 90 % (50-85); Total Cells Counted 100
[2020-09-24 07:11] LABS: Anisocytosis 1+
[2020-09-24 07:12] LABS: Macrocytosis Slight
[2020-09-24] MEDS: NYSTATIN POWDER 15 GM BOTTLE TOP SCH ×2 (08:18→21:58)
[2020-09-24] MEDS: LACTOBACILLUS RHAMNOSUS GG CAPSULE PER TUBE SCH ×2 (08:18→21:58)
[2020-09-24] MEDS: WHEAT DEXTRIN POWDER 244 GM BOTTLE PEG SCH ×3 (08:19→21:59)
[2020-09-24] MEDS: METOPROLOL TARTRATE 25 MG TABLET PO SCH (08:30)
[2020-09-24] MEDS: MENTHOL/ZINC OXIDE OINT 71 GM JAR TOP SCH ×2 (13:30→21:58)
[2020-09-24] MEDS: SODIUM CHLORIDE 0.9% 1,000 ML IV SCH (17:16)
[2020-09-25] MEDS: ALBUTEROL/IPRATROPIUM 3 ML NEB RESP TX SCH ×4 (00:35→19:11)
[2020-09-25] MEDS: SODIUM CHLORIDE 0.9% 1,000 ML IV SCH ×3 (01:31→18:02)
[2020-09-25] MEDS: INSULIN LISPRO 100 UNIT/ML SUBCUT SCH ×4 (06:07→23:35)
[2020-09-25] MEDS: LACTOBACILLUS RHAMNOSUS GG CAPSULE PER TUBE SCH ×2 (09:00→21:43)
[2020-09-25] MEDS: NYSTATIN POWDER 15 GM BOTTLE TOP SCH ×2 (09:01→21:43)
[2020-09-25] MEDS: MENTHOL/ZINC OXIDE OINT 71 GM JAR TOP SCH ×2 (09:01→21:43)
[2020-09-25] MEDS: WHEAT DEXTRIN POWDER 244 GM BOTTLE PEG SCH ×3 (09:01→21:43)
[2020-09-25] MEDS: METOPROLOL TARTRATE 25 MG TABLET PO SCH ×2 (09:02→20:18)
[2020-09-25 11:44] LABS: Basophils % 0.1 % (0.0-0.8); Eosinophils % 0.4 % (0.00-10.9); Hematocrit 27.3 VOL% (35.7-47.0); Hemoglobin 8.4 GM/DL (12.0-16.0); Immature Granulocytes % 1.3 %; Immature Granulocytes Absolute 0.09 #; Lymphocytes # 0.9 10*3/uL (1.4-4.0); Lymphocytes % 13.1 % (21.3-54.2); Mean Corpuscular HGB Conc 30.8 GM/DL (32-36); Mean Corpuscular Volume 96.5 FL (87-102); Mean Platelet Volume 10.2 FL (9.6-12.0); Monocytes % 6.7 % (1.7-12.7); Neutrophils % 78.4 % (38.7-73.9); Platelet Count 120 T/CUMM (130-400); Red Blood Count 2.83 MC/CUMM (3.8-5.5); Red Cell Distribution Width 18.8 % (9.3-17.3)
[2020-09-25 12:03] LABS: Albumin 1.1 G/DL (3.4-5.0); Bilirubin,Total 0.4 MG/DL (0.2-1.0); Calcium 8.1 MG/DL (8.5-10.1); Osmolality,Calculated 275.8 MOS/KG (273-304); Potassium 3.7 MMOL/L (3.5-5.1); Total Protein 4.8 G/DL (6.4-8.2)
[2020-09-25 12:13] LABS: Band Neutrophils 1 % (0-10); Lymphocytes 5 % (20-55); Segmented Neutrophils 88 % (50-85); Total Cells Counted 100
[2020-09-25 12:14] LABS: Platelet Estimate Adequate; Polychromasia Few
[2020-09-26] MEDS: ALBUTEROL/IPRATROPIUM 3 ML NEB RESP TX SCH ×4 (00:40→19:11)
[2020-09-26] MEDS: SODIUM CHLORIDE 0.9% 1,000 ML IV SCH ×2 (04:00→13:30)
[2020-09-26] MEDS: INSULIN LISPRO 100 UNIT/ML SUBCUT SCH ×3 (05:53→18:25)
[2020-09-26] MEDS: MENTHOL/ZINC OXIDE OINT 71 GM JAR TOP SCH ×2 (09:05→21:27)
[2020-09-26] MEDS: WHEAT DEXTRIN POWDER 244 GM BOTTLE PEG SCH ×3 (09:05→21:27)
[2020-09-26] MEDS: NYSTATIN POWDER 15 GM BOTTLE TOP SCH ×2 (09:05→21:27)
[2020-09-26] MEDS: LACTOBACILLUS RHAMNOSUS GG CAPSULE PER TUBE SCH ×2 (09:05→21:27)
[2020-09-26] MEDS: METOPROLOL TARTRATE 25 MG TABLET PO SCH ×2 (09:05→21:27)
[2020-09-27] MEDS: SODIUM CHLORIDE 0.9% 1,000 ML IV SCH ×3 (00:28→16:15)
[2020-09-27 01:01] LABS: CDT Result Negative (Negative); CDT Specimen Source STOOL
[2020-09-27] MEDS: ALBUTEROL/IPRATROPIUM 3 ML NEB RESP TX SCH ×4 (01:16→19:44)
[2020-09-27] MEDS: INSULIN LISPRO 100 UNIT/ML SUBCUT SCH ×4 (02:03→17:30)
[2020-09-27 04:55] LABS: Basophils % 0.3 % (0.0-0.8); Eosinophils % 0.4 % (0.00-10.9); Hematocrit 26.7 VOL% (35.7-47.0); Hemoglobin 8.1 GM/DL (12.0-16.0); Immature Granulocytes % 1.7 %; Immature Granulocytes Absolute 0.12 #; Lymphocytes % 14.6 % (21.3-54.2); Mean Corpuscular HGB Conc 30.3 GM/DL (32-36); Mean Corpuscular Volume 94.7 FL (87-102); Mean Platelet Volume 9.8 FL (9.6-12.0); Monocytes % 5.5 % (1.7-12.7); Neutrophils % 77.5 % (38.7-73.9); Platelet Count 104 T/CUMM (130-400); Red Blood Count 2.82 MC/CUMM (3.8-5.5); Red Cell Distribution Width 18.5 % (9.3-17.3); White Blood Count 7.1 T/CUMM (4-12)
[2020-09-27 05:17] LABS: Calcium 7.3 MG/DL (8.5-10.1); Osmolality,Calculated 280.3 MOS/KG (273-304); Potassium 3.2 MMOL/L (3.5-5.1)
[2020-09-27] MEDS: NYSTATIN POWDER 15 GM BOTTLE TOP SCH ×2 (08:09→20:38)
[2020-09-27] MEDS: MENTHOL/ZINC OXIDE OINT 71 GM JAR TOP SCH ×2 (08:09→20:37)
[2020-09-27] MEDS: WHEAT DEXTRIN POWDER 244 GM BOTTLE PEG SCH ×3 (08:19→20:38)
[2020-09-27] MEDS: METOPROLOL TARTRATE 25 MG TABLET PO SCH ×2 (08:20→20:37)
[2020-09-27] MEDS: LACTOBACILLUS RHAMNOSUS GG CAPSULE PER TUBE SCH ×2 (08:20→20:37)
[2020-09-27] MEDS ORDERED: propofoL 200 MG/20 ML VIAL IV ONE (09:09)
[2020-09-27] MEDS ORDERED: LIDOCAINE 2% 5 ML VIAL ONE (09:09)
[2020-09-27] MEDS ORDERED: ETOMIDATE 20 MG/10 ML VIAL IV ONE (09:09)
[2020-09-27] MEDS: POTASSIUM CHLORIDE 20 MEQ/15 ML UDCUP PER TUBE PRN (20:38)
[2020-09-28] MEDS: ALBUTEROL/IPRATROPIUM 3 ML NEB RESP TX SCH ×4 (01:33→19:08)
[2020-09-28] MEDS: SODIUM CHLORIDE 0.9% 1,000 ML IV SCH ×3 (01:58→18:30)
[2020-09-28] MEDS: INSULIN LISPRO 100 UNIT/ML SUBCUT SCH ×4 (01:58→19:04)
[2020-09-28] MEDS: POTASSIUM CHLORIDE 20 MEQ/15 ML UDCUP PER TUBE PRN (03:55)
[2020-09-28 06:45] LABS: Calcium 7.8 MG/DL (8.5-10.1); Potassium 3.3 MMOL/L (3.5-5.1)
[2020-09-28] MEDS ORDERED: MAGNESIUM SULF RIDER 4 GM/100 ML PREMIX IV ONE (09:30)
[2020-09-28] MEDS: NYSTATIN POWDER 15 GM BOTTLE TOP SCH ×2 (10:07→21:47)
[2020-09-28] MEDS: METOPROLOL TARTRATE 25 MG TABLET PO SCH ×2 (10:07→21:45)
[2020-09-28] MEDS: WHEAT DEXTRIN POWDER 244 GM BOTTLE PEG SCH ×2 (10:08→15:03)
[2020-09-28] MEDS: LACTOBACILLUS RHAMNOSUS GG CAPSULE PER TUBE SCH ×2 (10:08→21:45)
[2020-09-28] MEDS: POTASSIUM CHLORIDE 20 MEQ/15 ML UDCUP PER TUBE SCH ×3 (10:10→21:45)
[2020-09-28] MEDS: MENTHOL/ZINC OXIDE OINT 71 GM JAR TOP SCH ×2 (10:41→21:46)
[2020-09-28] MEDS: SODIUM HYPOCHLORITE 0.25% IRRIG 473 ML BOTTLE TOP SCH ×2 (13:58→21:46)
[2020-09-29] MEDS: ALBUTEROL/IPRATROPIUM 3 ML NEB RESP TX SCH ×4 (00:04→19:32)
[2020-09-29] MEDS: WHEAT DEXTRIN POWDER 244 GM BOTTLE PEG SCH ×4 (01:31→21:27)
[2020-09-29] MEDS: INSULIN LISPRO 100 UNIT/ML SUBCUT SCH ×4 (01:32→17:13)
[2020-09-29] MEDS: SODIUM CHLORIDE 0.9% 1,000 ML IV SCH ×3 (04:30→19:10)
[2020-09-29] MEDS: SODIUM HYPOCHLORITE 0.25% IRRIG 473 ML BOTTLE TOP SCH ×2 (09:00→21:41)
[2020-09-29] MEDS: LACTOBACILLUS RHAMNOSUS GG CAPSULE PER TUBE SCH ×2 (10:09→21:27)
[2020-09-29] MEDS: MENTHOL/ZINC OXIDE OINT 71 GM JAR TOP SCH ×2 (10:09→21:27)
[2020-09-29] MEDS: METOPROLOL TARTRATE 25 MG TABLET PO SCH ×2 (10:09→21:27)
[2020-09-29] MEDS: NYSTATIN POWDER 15 GM BOTTLE TOP SCH ×2 (10:10→21:28)
[2020-09-29] MEDS: METOCLOPRAMIDE 10 MG/10 ML UDCUP PEG SCH (21:27)
[2020-09-30] MEDS: INSULIN LISPRO 100 UNIT/ML SUBCUT SCH ×5 (00:06→23:35)
[2020-09-30] MEDS: ALBUTEROL/IPRATROPIUM 3 ML NEB RESP TX SCH ×4 (00:27→19:14)
[2020-09-30] MEDS: SODIUM CHLORIDE 0.9% 1,000 ML IV SCH ×3 (02:32→22:50)
[2020-09-30 05:46] LABS: Basophils % 0.3 % (0.0-0.8); Eosinophils % 0.1 % (0.00-10.9); Hematocrit 29.8 VOL% (35.7-47.0); Hemoglobin 9.1 GM/DL (12.0-16.0); Immature Granulocytes % 2.4 %; Immature Granulocytes Absolute 0.22 #; Lymphocytes # 1.7 10*3/uL (1.4-4.0); Lymphocytes % 18.4 % (21.3-54.2); Mean Corpuscular HGB Conc 30.5 GM/DL (32-36); Mean Corpuscular Volume 94.6 FL (87-102); Mean Platelet Volume 10.2 FL (9.6-12.0); Monocytes % 4.6 % (1.7-12.7); Neutrophils % 74.2 % (38.7-73.9); Platelet Count 124 T/CUMM (130-400); Red Blood Count 3.15 MC/CUMM (3.8-5.5); Red Cell Distribution Width 18.8 % (9.3-17.3); White Blood Count 9.1 T/CUMM (4-12)
[2020-09-30 06:01] LABS: Calcium 7.9 MG/DL (8.5-10.1); Osmolality,Calculated 283.4 MOS/KG (273-304); Potassium 3.8 MMOL/L (3.5-5.1)
[2020-09-30] MEDS: METOCLOPRAMIDE 10 MG/10 ML UDCUP PEG SCH ×4 (09:47→22:15)
[2020-09-30] MEDS: LACTOBACILLUS RHAMNOSUS GG CAPSULE PER TUBE SCH ×2 (09:47→22:15)
[2020-09-30] MEDS: METOPROLOL TARTRATE 25 MG TABLET PO SCH ×2 (09:47→22:15)
[2020-09-30] MEDS: NYSTATIN POWDER 15 GM BOTTLE TOP SCH ×2 (09:48→21:15)
[2020-09-30] MEDS: MENTHOL/ZINC OXIDE OINT 71 GM JAR TOP SCH ×2 (09:48→21:15)
[2020-09-30] MEDS: WHEAT DEXTRIN POWDER 244 GM BOTTLE PEG SCH ×3 (09:48→22:15)
[2020-09-30] MEDS: SODIUM HYPOCHLORITE 0.25% IRRIG 473 ML BOTTLE TOP SCH ×2 (10:48→22:31)
[2020-10-01] MEDS: ALBUTEROL/IPRATROPIUM 3 ML NEB RESP TX SCH ×4 (00:08→22:42)
[2020-10-01] MEDS: INSULIN LISPRO 100 UNIT/ML SUBCUT SCH ×3 (05:40→18:26)
[2020-10-01] MEDS: SODIUM HYPOCHLORITE 0.25% IRRIG 473 ML BOTTLE TOP SCH ×2 (09:00→21:57)
[2020-10-01] MEDS: METOCLOPRAMIDE 10 MG/10 ML UDCUP PEG SCH ×4 (09:02→21:57)
[2020-10-01] MEDS: LACTOBACILLUS RHAMNOSUS GG CAPSULE PER TUBE SCH ×2 (09:02→21:56)
[2020-10-01] MEDS: MENTHOL/ZINC OXIDE OINT 71 GM JAR TOP SCH ×2 (09:03→21:57)
[2020-10-01] MEDS: WHEAT DEXTRIN POWDER 244 GM BOTTLE PEG SCH ×3 (09:03→21:58)
[2020-10-01] MEDS: NYSTATIN POWDER 15 GM BOTTLE TOP SCH ×2 (09:04→21:57)
[2020-10-01] MEDS: METOPROLOL TARTRATE 25 MG TABLET PO SCH ×2 (09:07→21:57)
[2020-10-01] MEDS: SODIUM CHLORIDE 0.9% 1,000 ML IV SCH ×2 (10:17→22:04)
[2020-10-02] MEDS: INSULIN LISPRO 100 UNIT/ML SUBCUT SCH ×5 (00:19→23:30)
[2020-10-02] MEDS: ALBUTEROL/IPRATROPIUM 3 ML NEB RESP TX SCH ×4 (02:25→19:12)
[2020-10-02 07:21] LABS: Basophils % 0.2 % (0.0-0.8); Eosinophils % 0.4 % (0.00-10.9); Hematocrit 27.4 VOL% (35.7-47.0); Hemoglobin 8.1 GM/DL (12.0-16.0); Immature Granulocytes % 1.9 %; Immature Granulocytes Absolute 0.16 #; Lymphocytes # 1.3 10*3/uL (1.4-4.0); Lymphocytes % 15.7 % (21.3-54.2); Mean Corpuscular HGB Conc 29.6 GM/DL (32-36); Mean Corpuscular Volume 94.8 FL (87-102); Monocytes % 5.1 % (1.7-12.7); NRBC # 0.03 10*3/uL; Neutrophils % 76.7 % (38.7-73.9); Platelet Count 136 T/CUMM (130-400); Red Blood Count 2.89 MC/CUMM (3.8-5.5); Red Cell Distribution Width 18.6 % (9.3-17.3); White Blood Count 8.5 T/CUMM (4-12)
[2020-10-02 07:30] LABS: Alanine Aminotransferase 29 U/L (13-56); Alkaline Phosphatase 118 U/L (45-117); Aspartate Amino Transferase 16 U/L (0-37); Bilirubin,Indirect 0.3 MG/DL (0.0-1.0); Bilirubin,Total < 0.39 MG/DL (0.2-1.0); Blood Urea Nitrogen 13 MG/DL (7-18); Calcium 7.5 MG/DL (8.5-10.1); Carbon Dioxide 21 MMOL/L (21-32); Estimated Glom Filtration Rate 142 ML/MIN; Glucose 175 MG/DL (74-106); Osmolality,Calculated 286.1 MOS/KG (273-304); Potassium 3.3 MMOL/L (3.5-5.1); Sodium 142 MMOL/L (136-145); Total Protein 4.5 G/DL (6.4-8.2)
[2020-10-02] MEDS: METOPROLOL TARTRATE 25 MG TABLET PO SCH ×2 (10:09→22:10)
[2020-10-02] MEDS: METOCLOPRAMIDE 10 MG/10 ML UDCUP PEG SCH ×4 (10:09→22:10)
[2020-10-02] MEDS: LACTOBACILLUS RHAMNOSUS GG CAPSULE PER TUBE SCH ×2 (10:09→22:13)
[2020-10-02] MEDS: NYSTATIN POWDER 15 GM BOTTLE TOP SCH ×2 (10:10→22:12)
[2020-10-02] MEDS: MENTHOL/ZINC OXIDE OINT 71 GM JAR TOP SCH ×2 (10:10→22:14)
[2020-10-02] MEDS: WHEAT DEXTRIN POWDER 244 GM BOTTLE PEG SCH ×3 (10:14→22:11)
[2020-10-02] MEDS: SODIUM HYPOCHLORITE 0.25% IRRIG 473 ML BOTTLE TOP SCH ×2 (10:28→22:12)
[2020-10-02] MEDS: SODIUM CHLORIDE 0.9% 1,000 ML IV SCH (10:30)
[2020-10-02] MEDS: ENOXAPARIN 80 MG/0.8 ML SYRINGE SUBCUT SCH (17:35)
[2020-10-02] MEDS: POTASSIUM CHLORIDE 20 MEQ/15 ML UDCUP PER TUBE PRN (22:10)
[2020-10-03] MEDS: POTASSIUM CHLORIDE 20 MEQ/15 ML UDCUP PER TUBE PRN ×2 (00:48→02:40)
[2020-10-03] MEDS: ALBUTEROL/IPRATROPIUM 3 ML NEB RESP TX SCH ×4 (01:23→20:03)
[2020-10-03 05:41] LABS: Basophils % 0.2 % (0.0-0.8); Eosinophils % 0.4 % (0.00-10.9); Hematocrit 28.5 VOL% (35.7-47.0); Hemoglobin 8.3 GM/DL (12.0-16.0); Immature Granulocytes % 1.3 %; Immature Granulocytes Absolute 0.12 #; Lymphocytes # 1.4 10*3/uL (1.4-4.0); Lymphocytes % 15.1 % (21.3-54.2); Mean Corpuscular HGB Conc 29.1 GM/DL (32-36); Mean Corpuscular Volume 96.3 FL (87-102); NRBC # 0.02 10*3/uL; Platelet Count 149 T/CUMM (130-400); Red Blood Count 2.96 MC/CUMM (3.8-5.5); Red Cell Distribution Width 19.5 % (9.3-17.3); White Blood Count 9.3 T/CUMM (4-12)
[2020-10-03] MEDS: ENOXAPARIN 80 MG/0.8 ML SYRINGE SUBCUT SCH ×2 (05:43→18:20)
[2020-10-03] MEDS: INSULIN LISPRO 100 UNIT/ML SUBCUT SCH ×3 (05:44→18:17)
[2020-10-03 06:01] LABS: Alanine Aminotransferase 27 U/L (13-56); Albumin 1.1 G/DL (3.4-5.0); Alkaline Phosphatase 115 U/L (45-117); Aspartate Amino Transferase 16 U/L (0-37); Bilirubin,Total < 0.39 MG/DL (0.2-1.0); Blood Urea Nitrogen 12 MG/DL (7-18); Calcium 7.8 MG/DL (8.5-10.1); Carbon Dioxide 21 MMOL/L (21-32); Estimated Glom Filtration Rate 142 ML/MIN; Glucose 213 MG/DL (74-106); Osmolality,Calculated 284.4 MOS/KG (273-304); Sodium 140 MMOL/L (136-145); Total Protein 4.4 G/DL (6.4-8.2)
[2020-10-03] MEDS: SODIUM CHLORIDE 0.9% 1,000 ML IV SCH ×3 (07:07→20:09)
[2020-10-03] MEDS: LACTOBACILLUS RHAMNOSUS GG CAPSULE PER TUBE SCH ×2 (09:56→22:16)
[2020-10-03] MEDS: METOCLOPRAMIDE 10 MG/10 ML UDCUP PEG SCH ×4 (09:56→22:22)
[2020-10-03] MEDS: METOPROLOL TARTRATE 25 MG TABLET PO SCH ×2 (09:57→22:16)
[2020-10-03] MEDS: WHEAT DEXTRIN POWDER 244 GM BOTTLE PEG SCH ×3 (10:00→22:30)
[2020-10-03] MEDS: MENTHOL/ZINC OXIDE OINT 71 GM JAR TOP SCH ×2 (12:06→22:30)
[2020-10-03] MEDS: NYSTATIN POWDER 15 GM BOTTLE TOP SCH ×2 (12:06→22:17)
[2020-10-03] MEDS: MAGNESIUM OXIDE 400 MG TABLET PO SCH ×2 (12:45→22:17)
[2020-10-03] MEDS: SODIUM HYPOCHLORITE 0.25% IRRIG 473 ML BOTTLE TOP SCH ×2 (18:18→23:47)
[2020-10-04] MEDS: ALBUTEROL/IPRATROPIUM 3 ML NEB RESP TX SCH ×4 (00:32→19:35)
[2020-10-04] MEDS: INSULIN LISPRO 100 UNIT/ML SUBCUT SCH ×5 (02:28→23:47)
[2020-10-04] MEDS: SODIUM CHLORIDE 0.9% 1,000 ML IV SCH ×4 (03:19→23:14)
[2020-10-04] MEDS: ENOXAPARIN 80 MG/0.8 ML SYRINGE SUBCUT SCH (06:06)
[2020-10-04] MEDS: METOPROLOL TARTRATE 25 MG TABLET PO SCH ×2 (08:40→21:29)
[2020-10-04] MEDS: SODIUM HYPOCHLORITE 0.25% IRRIG 473 ML BOTTLE TOP SCH ×2 (08:40→22:25)
[2020-10-04] MEDS: MAGNESIUM OXIDE 400 MG TABLET PO SCH ×2 (10:36→21:29)
[2020-10-04] MEDS: APIXABAN 5 MG TABLET PO SCH ×2 (10:36→21:30)
[2020-10-04] MEDS: LACTOBACILLUS RHAMNOSUS GG CAPSULE PER TUBE SCH (10:36)
[2020-10-04] MEDS: METOCLOPRAMIDE 10 MG/10 ML UDCUP PEG SCH ×4 (10:36→21:29)
[2020-10-04] MEDS: WHEAT DEXTRIN POWDER 244 GM BOTTLE PEG SCH ×3 (10:37→21:30)
[2020-10-04] MEDS: MENTHOL/ZINC OXIDE OINT 71 GM JAR TOP SCH ×2 (10:37→21:30)
[2020-10-04] MEDS: NYSTATIN POWDER 15 GM BOTTLE TOP SCH ×2 (10:37→21:30)
[2020-10-04] MEDS: LACTOBACILLUS ACIDOPHILUS/BULGARICUS CAPLET PER TUBE SCH (21:29)
[2020-10-05] MEDS: ALBUTEROL/IPRATROPIUM 3 ML NEB RESP TX SCH ×4 (00:10→19:06)
[2020-10-05] MEDS: INSULIN LISPRO 100 UNIT/ML SUBCUT SCH ×3 (07:05→17:21)
[2020-10-05 08:06] LABS: Calcium 8.1 MG/DL (8.5-10.1); Osmolality,Calculated 286.1 MOS/KG (273-304); Potassium 3.5 MMOL/L (3.5-5.1)
[2020-10-05] MEDS: METOPROLOL TARTRATE 25 MG TABLET PO SCH ×2 (08:38→21:46)
[2020-10-05] MEDS: WHEAT DEXTRIN POWDER 244 GM BOTTLE PEG SCH ×3 (09:47→21:47)
[2020-10-05] MEDS: APIXABAN 5 MG TABLET PO SCH ×2 (09:47→21:47)
[2020-10-05] MEDS: METOCLOPRAMIDE 10 MG/10 ML UDCUP PEG SCH ×4 (09:47→21:46)
[2020-10-05] MEDS: LACTOBACILLUS ACIDOPHILUS/BULGARICUS CAPLET PER TUBE SCH ×2 (09:47→21:46)
[2020-10-05] MEDS: MENTHOL/ZINC OXIDE OINT 71 GM JAR TOP SCH ×2 (09:48→21:47)
[2020-10-05] MEDS: NYSTATIN POWDER 15 GM BOTTLE TOP SCH ×2 (09:48→21:47)
[2020-10-05] MEDS: SODIUM HYPOCHLORITE 0.25% IRRIG 473 ML BOTTLE TOP SCH ×2 (10:08→22:52)
[2020-10-05] MEDS: SODIUM CHLORIDE 0.9% 1,000 ML IV SCH (17:22)
[2020-10-06] MEDS: ALBUTEROL/IPRATROPIUM 3 ML NEB RESP TX SCH ×4 (00:35→19:36)
[2020-10-06] MEDS: INSULIN LISPRO 100 UNIT/ML SUBCUT SCH ×4 (00:54→18:29)
[2020-10-06] MEDS: SODIUM CHLORIDE 0.9% 1,000 ML IV SCH ×3 (05:15→18:27)
[2020-10-06] MEDS: METOCLOPRAMIDE 10 MG/10 ML UDCUP PEG SCH ×4 (08:53→21:58)
[2020-10-06] MEDS: METOPROLOL TARTRATE 25 MG TABLET PO SCH ×2 (08:53→21:58)
[2020-10-06] MEDS: LACTOBACILLUS ACIDOPHILUS/BULGARICUS CAPLET PER TUBE SCH ×2 (08:53→21:58)
[2020-10-06] MEDS: POTASSIUM CHLORIDE 20 MEQ/15 ML UDCUP PER TUBE PRN (08:53)
[2020-10-06] MEDS: APIXABAN 5 MG TABLET PO SCH ×2 (08:53→21:58)
[2020-10-06] MEDS: WHEAT DEXTRIN POWDER 244 GM BOTTLE PEG SCH ×3 (08:54→21:59)
[2020-10-06] MEDS: NYSTATIN POWDER 15 GM BOTTLE TOP SCH ×2 (08:54→22:00)
[2020-10-06] MEDS: MENTHOL/ZINC OXIDE OINT 71 GM JAR TOP SCH ×2 (08:54→21:59)
[2020-10-06] MEDS: SODIUM HYPOCHLORITE 0.25% IRRIG 473 ML BOTTLE TOP SCH ×2 (18:28→21:57)
[2020-10-07] MEDS: INSULIN LISPRO 100 UNIT/ML SUBCUT SCH ×5 (00:30→23:23)
[2020-10-07] MEDS: ALBUTEROL/IPRATROPIUM 3 ML NEB RESP TX SCH ×4 (01:47→19:56)
[2020-10-07] MEDS: SODIUM CHLORIDE 0.9% 1,000 ML IV SCH ×2 (02:44→16:54)
[2020-10-07] MEDS: WHEAT DEXTRIN POWDER 244 GM BOTTLE PEG SCH ×3 (09:06→21:32)
[2020-10-07] MEDS: METOCLOPRAMIDE 10 MG/10 ML UDCUP PEG SCH ×4 (09:06→21:31)
[2020-10-07] MEDS: LACTOBACILLUS ACIDOPHILUS/BULGARICUS CAPLET PER TUBE SCH ×2 (09:06→21:32)
[2020-10-07] MEDS: METOPROLOL TARTRATE 25 MG TABLET PO SCH ×2 (09:07→21:31)
[2020-10-07] MEDS: APIXABAN 5 MG TABLET PO SCH ×2 (09:07→21:32)
[2020-10-07] MEDS: MENTHOL/ZINC OXIDE OINT 71 GM JAR TOP SCH ×2 (10:24→21:32)
[2020-10-07] MEDS: SODIUM HYPOCHLORITE 0.25% IRRIG 473 ML BOTTLE TOP SCH ×2 (10:25→21:32)
[2020-10-07] MEDS: NYSTATIN POWDER 15 GM BOTTLE TOP SCH ×2 (10:25→21:32)
[2020-10-08] MEDS: ALBUTEROL/IPRATROPIUM 3 ML NEB RESP TX SCH ×4 (00:56→19:08)
[2020-10-08] MEDS: SODIUM CHLORIDE 0.9% 1,000 ML IV SCH ×3 (04:59→20:47)
[2020-10-08 06:08] LABS: Albumin 0.9 G/DL (3.4-5.0); Bilirubin,Total 0.4 MG/DL (0.2-1.0); Calcium 7.7 MG/DL (8.5-10.1); Osmolality,Calculated 280.3 MOS/KG (273-304); Potassium 4.1 MMOL/L (3.5-5.1); Total Protein 4.8 G/DL (6.4-8.2)
[2020-10-08 06:15] LABS: Basophils % 0.3 % (0.0-0.8); Eosinophils % 0.6 % (0.00-10.9); Hematocrit 27.9 VOL% (35.7-47.0); Hemoglobin 8.1 GM/DL (12.0-16.0); Immature Granulocytes % 0.8 %; Immature Granulocytes Absolute 0.06 #; Lymphocytes # 1.2 10*3/uL (1.4-4.0); Lymphocytes % 16.3 % (21.3-54.2); Mean Corpuscular Volume 97.6 FL (87-102); Platelet Count 194 T/CUMM (130-400); Red Blood Count 2.86 MC/CUMM (3.8-5.5); Red Cell Distribution Width 20.9 % (9.3-17.3); White Blood Count 7.1 T/CUMM (4-12)
[2020-10-08] MEDS: INSULIN LISPRO 100 UNIT/ML SUBCUT SCH ×3 (06:26→17:17)
[2020-10-08] MEDS: METOCLOPRAMIDE 10 MG/10 ML UDCUP PEG SCH ×4 (08:25→20:48)
[2020-10-08] MEDS: APIXABAN 5 MG TABLET PO SCH ×2 (08:28→20:48)
[2020-10-08] MEDS: METOPROLOL TARTRATE 25 MG TABLET PO SCH ×2 (08:28→20:47)
[2020-10-08] MEDS: LACTOBACILLUS ACIDOPHILUS/BULGARICUS CAPLET PER TUBE SCH ×2 (08:29→20:48)
[2020-10-08] MEDS: WHEAT DEXTRIN POWDER 244 GM BOTTLE PEG SCH ×3 (08:33→20:48)
[2020-10-08] MEDS: MENTHOL/ZINC OXIDE OINT 71 GM JAR TOP SCH ×2 (08:35→20:48)
[2020-10-08] MEDS: NYSTATIN POWDER 15 GM BOTTLE TOP SCH ×2 (08:35→20:48)
[2020-10-08] MEDS: SODIUM HYPOCHLORITE 0.25% IRRIG 473 ML BOTTLE TOP SCH ×2 (10:53→20:49)
[2020-10-09] MEDS: INSULIN LISPRO 100 UNIT/ML SUBCUT SCH ×4 (00:10→17:40)
[2020-10-09] MEDS: ALBUTEROL/IPRATROPIUM 3 ML NEB RESP TX SCH ×4 (00:38→18:59)
[2020-10-09] MEDS: SODIUM CHLORIDE 0.9% 1,000 ML IV SCH ×3 (04:52→13:29)
[2020-10-09 06:26] LABS: Calcium 8.2 MG/DL (8.5-10.1); Osmolality,Calculated 283.8 MOS/KG (273-304); Potassium 3.4 MMOL/L (3.5-5.1)
[2020-10-09] MEDS: METOCLOPRAMIDE 10 MG/10 ML UDCUP PEG SCH ×4 (09:10→20:43)
[2020-10-09] MEDS: APIXABAN 5 MG TABLET PO SCH ×2 (09:10→20:43)
[2020-10-09] MEDS: LACTOBACILLUS ACIDOPHILUS/BULGARICUS CAPLET PER TUBE SCH ×2 (09:10→20:43)
[2020-10-09] MEDS: METOPROLOL TARTRATE 25 MG TABLET PO SCH ×2 (09:10→20:43)
[2020-10-09] MEDS: NYSTATIN POWDER 15 GM BOTTLE TOP SCH ×2 (09:13→20:44)
[2020-10-09] MEDS: MENTHOL/ZINC OXIDE OINT 71 GM JAR TOP SCH ×2 (09:13→20:44)
[2020-10-09] MEDS: WHEAT DEXTRIN POWDER 244 GM BOTTLE PEG SCH ×3 (09:14→20:44)
[2020-10-09] MEDS: SODIUM HYPOCHLORITE 0.25% IRRIG 473 ML BOTTLE TOP SCH ×2 (09:33→20:44)
[2020-10-09] MEDS ORDERED: POTASSIUM PHOSPHATE 15 MMOL in SODIUM CHLORIDE 0.9% 100 ML IV ONE (15:00)
[2020-10-10] MEDS: ALBUTEROL/IPRATROPIUM 3 ML NEB RESP TX SCH ×4 (00:47→18:23)
[2020-10-10] MEDS: INSULIN LISPRO 100 UNIT/ML SUBCUT SCH ×4 (00:55→18:12)
[2020-10-10 04:40] LABS: Basophils % 0.5 % (0.0-0.8); Eosinophils % 0.5 % (0.00-10.9); Hematocrit 26.7 VOL% (35.7-47.0); Hemoglobin 7.8 GM/DL (12.0-16.0); Immature Granulocytes % 0.7 %; Immature Granulocytes Absolute 0.04 #; Lymphocytes # 1.3 10*3/uL (1.4-4.0); Lymphocytes % 21.4 % (21.3-54.2); Mean Corpuscular HGB Conc 29.2 GM/DL (32-36); Mean Corpuscular Volume 97.8 FL (87-102); Mean Platelet Volume 9.4 FL (9.6-12.0); Monocytes % 10.5 % (1.7-12.7); Neutrophils % 66.4 % (38.7-73.9); Platelet Count 232 T/CUMM (130-400); Red Blood Count 2.73 MC/CUMM (3.8-5.5); Red Cell Distribution Width 21.5 % (9.3-17.3); White Blood Count 5.8 T/CUMM (4-12)
[2020-10-10 04:53] LABS: Calcium 7.3 MG/DL (8.5-10.1); Osmolality,Calculated 290.7 MOS/KG (273-304); Potassium 3.7 MMOL/L (3.5-5.1)
[2020-10-10] MEDS: SODIUM CHLORIDE 0.9% 1,000 ML IV SCH (05:53)
[2020-10-10] MEDS: LACTOBACILLUS ACIDOPHILUS/BULGARICUS CAPLET PER TUBE SCH ×2 (08:46→21:28)
[2020-10-10] MEDS: WHEAT DEXTRIN POWDER 244 GM BOTTLE PEG SCH ×3 (08:46→23:22)
[2020-10-10] MEDS: METOPROLOL TARTRATE 25 MG TABLET PO SCH ×2 (08:46→21:28)
[2020-10-10] MEDS: METOCLOPRAMIDE 10 MG/10 ML UDCUP PEG SCH ×4 (08:47→21:28)
[2020-10-10] MEDS: APIXABAN 5 MG TABLET PO SCH ×2 (08:47→21:28)
[2020-10-10] MEDS: MENTHOL/ZINC OXIDE OINT 71 GM JAR TOP SCH ×2 (08:48→23:22)
[2020-10-10] MEDS: SODIUM HYPOCHLORITE 0.25% IRRIG 473 ML BOTTLE TOP SCH ×2 (08:48→23:23)
[2020-10-10] MEDS: NYSTATIN POWDER 15 GM BOTTLE TOP SCH ×2 (08:49→23:23)
[2020-10-11] MEDS: ALBUTEROL/IPRATROPIUM 3 ML NEB RESP TX SCH ×4 (00:22→19:48)
[2020-10-11] MEDS: INSULIN LISPRO 100 UNIT/ML SUBCUT SCH ×4 (02:13→17:30)
[2020-10-11 05:55] LABS: Basophils % 0.5 % (0.0-0.8); Eosinophils # 0.1 10*3/uL (0.0-0.87); Eosinophils % 0.8 % (0.00-10.9); Hematocrit 27.8 VOL% (35.7-47.0); Hemoglobin 8.3 GM/DL (12.0-16.0); Immature Granulocytes % 0.9 %; Immature Granulocytes Absolute 0.06 #; Lymphocytes # 1.3 10*3/uL (1.4-4.0); Lymphocytes % 20.2 % (21.3-54.2); Mean Corpuscular HGB Conc 29.9 GM/DL (32-36); Mean Corpuscular Volume 97.2 FL (87-102); Mean Platelet Volume 9.4 FL (9.6-12.0); Neutrophils % 67.6 % (38.7-73.9); Platelet Count 241 T/CUMM (130-400); Red Blood Count 2.86 MC/CUMM (3.8-5.5); Red Cell Distribution Width 21.2 % (9.3-17.3); White Blood Count 6.4 T/CUMM (4-12)
[2020-10-11 06:16] LABS: Osmolality,Calculated 278.3 MOS/KG (273-304); Potassium 3.4 MMOL/L (3.5-5.1)
[2020-10-11] MEDS ORDERED: MAGNESIUM SULF RIDER 2 GM/50 ML PREMIX IV ONE (08:00)
[2020-10-11] MEDS ORDERED: POTASSIUM CHLORIDE 20 MEQ/15 ML UDCUP PER TUBE ONE (08:00)
[2020-10-11] MEDS: SODIUM HYPOCHLORITE 0.25% IRRIG 473 ML BOTTLE TOP SCH ×2 (08:04→21:10)
[2020-10-11] MEDS: WHEAT DEXTRIN POWDER 244 GM BOTTLE PEG SCH ×3 (10:18→21:10)
[2020-10-11] MEDS: NYSTATIN POWDER 15 GM BOTTLE TOP SCH ×2 (10:18→21:10)
[2020-10-11] MEDS: METOCLOPRAMIDE 10 MG/10 ML UDCUP PEG SCH ×4 (10:18→21:10)
[2020-10-11] MEDS: MENTHOL/ZINC OXIDE OINT 71 GM JAR TOP SCH ×2 (10:18→21:10)
[2020-10-11] MEDS: LACTOBACILLUS ACIDOPHILUS/BULGARICUS CAPLET PER TUBE SCH ×2 (10:19→21:10)
[2020-10-11] MEDS: APIXABAN 5 MG TABLET PO SCH ×2 (10:19→21:10)
[2020-10-11] MEDS: METOPROLOL TARTRATE 25 MG TABLET PO SCH ×2 (10:19→21:10)
[2020-10-11] MEDS ORDERED: METHYL SALICYLATE 60 ML BOTTLE TOP PRN (14:30)
[2020-10-12] MEDS: INSULIN LISPRO 100 UNIT/ML SUBCUT SCH ×2 (00:19→12:45)
[2020-10-12] MEDS: ALBUTEROL/IPRATROPIUM 3 ML NEB RESP TX SCH ×4 (00:43→19:26)
[2020-10-12 05:44] LABS: Basophils % 0.4 % (0.0-0.8); Eosinophils % 0.7 % (0.00-10.9); Hematocrit 25.2 VOL% (35.7-47.0); Hemoglobin 7.5 GM/DL (12.0-16.0); Immature Granulocytes % 0.9 %; Immature Granulocytes Absolute 0.05 #; Lymphocytes # 1.3 10*3/uL (1.4-4.0); Lymphocytes % 24.2 % (21.3-54.2); Mean Corpuscular HGB Conc 29.8 GM/DL (32-36); Mean Corpuscular Volume 96.9 FL (87-102); Mean Platelet Volume 8.9 FL (9.6-12.0); Monocytes % 14.2 % (1.7-12.7); Neutrophils % 59.6 % (38.7-73.9); Platelet Count 248 T/CUMM (130-400); White Blood Count 5.5 T/CUMM (4-12)
[2020-10-12 06:01] LABS: Alanine Aminotransferase 20 U/L (13-56); Alkaline Phosphatase 112 U/L (45-117); Aspartate Amino Transferase 10 U/L (0-37); Bilirubin,Total < 0.39 MG/DL (0.2-1.0); Blood Urea Nitrogen 7 MG/DL (7-18); Calcium 7.9 MG/DL (8.5-10.1); Carbon Dioxide 25 MMOL/L (21-32); Estimated Glom Filtration Rate 177 ML/MIN; Glucose 84 MG/DL (74-106); Osmolality,Calculated 277.3 MOS/KG (273-304); Potassium 3.4 MMOL/L (3.5-5.1); Sodium 141 MMOL/L (136-145); Total Protein 4.4 G/DL (6.4-8.2)
[2020-10-12] MEDS: MENTHOL/ZINC OXIDE OINT 71 GM JAR TOP SCH ×2 (12:46→21:24)
[2020-10-12] MEDS: APIXABAN 5 MG TABLET PO SCH ×2 (12:47→21:24)
[2020-10-12] MEDS: NYSTATIN POWDER 15 GM BOTTLE TOP SCH ×2 (12:47→21:24)
[2020-10-12] MEDS: METOPROLOL TARTRATE 25 MG TABLET PO SCH ×2 (12:47→21:25)
[2020-10-12] MEDS: WHEAT DEXTRIN POWDER 244 GM BOTTLE PEG SCH ×3 (12:48→21:24)
[2020-10-12] MEDS: METOCLOPRAMIDE 10 MG/10 ML UDCUP PEG SCH ×4 (12:48→21:24)
[2020-10-12] MEDS: LACTOBACILLUS ACIDOPHILUS/BULGARICUS CAPLET PER TUBE SCH ×2 (12:48→21:24)
[2020-10-12] MEDS: SODIUM HYPOCHLORITE 0.25% IRRIG 473 ML BOTTLE TOP SCH ×2 (16:51→20:30)
[2020-10-13] MEDS: INSULIN LISPRO 100 UNIT/ML SUBCUT SCH ×2 (00:20→09:44)
[2020-10-13] MEDS: ALBUTEROL/IPRATROPIUM 3 ML NEB RESP TX SCH ×4 (00:23→19:26)
[2020-10-13 04:53] LABS: Basophils % 0.9 % (0.0-0.8); Eosinophils % 0.9 % (0.00-10.9); Hematocrit 27.9 VOL% (35.7-47.0); Hemoglobin 8.2 GM/DL (12.0-16.0); Immature Granulocytes % 0.7 %; Immature Granulocytes Absolute 0.03 #; Mean Corpuscular HGB Conc 29.4 GM/DL (32-36); Mean Corpuscular Volume 96.9 FL (87-102); Mean Platelet Volume 9.2 FL (9.6-12.0); Monocytes % 14.3 % (1.7-12.7); Neutrophils % 60.2 % (38.7-73.9); Platelet Count 277 T/CUMM (130-400); Red Blood Count 2.88 MC/CUMM (3.8-5.5); Red Cell Distribution Width 20.7 % (9.3-17.3); White Blood Count 4.3 T/CUMM (4-12)
[2020-10-13 05:07] LABS: Osmolality,Calculated 277.3 MOS/KG (273-304); Potassium 3.3 MMOL/L (3.5-5.1)
[2020-10-13] MEDS: METOPROLOL TARTRATE 25 MG TABLET PO SCH ×2 (09:24→21:58)
[2020-10-13] MEDS: APIXABAN 5 MG TABLET PO SCH ×2 (09:24→21:58)
[2020-10-13] MEDS: LACTOBACILLUS ACIDOPHILUS/BULGARICUS CAPLET PER TUBE SCH ×2 (09:24→21:58)
[2020-10-13] MEDS: POTASSIUM CHLORIDE 20 MEQ/15 ML UDCUP PER TUBE PRN ×2 (09:24→11:33)
[2020-10-13] MEDS: METOCLOPRAMIDE 10 MG/10 ML UDCUP PEG SCH ×4 (09:24→21:56)
[2020-10-13] MEDS: WHEAT DEXTRIN POWDER 244 GM BOTTLE PEG SCH ×3 (09:25→21:55)
[2020-10-13] MEDS: MENTHOL/ZINC OXIDE OINT 71 GM JAR TOP SCH ×2 (09:25→21:55)
[2020-10-13] MEDS: NYSTATIN POWDER 15 GM BOTTLE TOP SCH ×2 (09:29→21:55)
[2020-10-13] MEDS: SODIUM HYPOCHLORITE 0.25% IRRIG 473 ML BOTTLE TOP SCH ×2 (09:45→21:59)
[2020-10-13] MEDS ORDERED: GLUCAGON 1 MG VIAL IM PRN (16:04)
[2020-10-13] MEDS ORDERED: DEXTROSE 50% 25 GM/50 ML VIAL IV PRN (16:04)
[2020-10-14] MEDS: INSULIN LISPRO 100 UNIT/ML SUBCUT SCH ×6 (01:01→16:32)
[2020-10-14] MEDS: ALBUTEROL/IPRATROPIUM 3 ML NEB RESP TX SCH ×4 (01:15→19:18)
[2020-10-14 06:03] LABS: Basophils % 0.4 % (0.0-0.8); Eosinophils # 0.1 10*3/uL (0.0-0.87); Eosinophils % 0.9 % (0.00-10.9); Hematocrit 28.4 VOL% (35.7-47.0); Hemoglobin 8.3 GM/DL (12.0-16.0); Immature Granulocytes % 0.5 %; Immature Granulocytes Absolute 0.03 #; Lymphocytes # 1.3 10*3/uL (1.4-4.0); Mean Corpuscular HGB Conc 29.2 GM/DL (32-36); Mean Corpuscular Volume 97.6 FL (87-102); Mean Platelet Volume 9.1 FL (9.6-12.0); Neutrophils % 60.2 % (38.7-73.9); Platelet Count 289 T/CUMM (130-400); Red Blood Count 2.91 MC/CUMM (3.8-5.5); Red Cell Distribution Width 20.6 % (9.3-17.3); White Blood Count 5.7 T/CUMM (4-12)
[2020-10-14 06:21] LABS: Calcium 7.8 MG/DL (8.5-10.1); Potassium 3.3 MMOL/L (3.5-5.1)
[2020-10-14 06:26] LABS: Hypochromasia Slight; Lymphocytes 14 % (20-55); Platelet Estimate Normal; Segmented Neutrophils 75 % (50-85); Total Cells Counted 100
[2020-10-14] MEDS ORDERED: DEXTROSE 50% 25 GM/50 ML VIAL IV PRN (06:54)
[2020-10-14] MEDS ORDERED: GLUCAGON 1 MG VIAL IM PRN (06:54)
[2020-10-14] MEDS: APIXABAN 5 MG TABLET PO SCH ×2 (09:13→21:44)
[2020-10-14] MEDS: LACTOBACILLUS ACIDOPHILUS/BULGARICUS CAPLET PER TUBE SCH ×2 (09:13→21:44)
[2020-10-14] MEDS: METOCLOPRAMIDE 10 MG/10 ML UDCUP PEG SCH ×4 (09:13→21:44)
[2020-10-14] MEDS: METOPROLOL TARTRATE 25 MG TABLET PO SCH ×2 (09:13→21:44)
[2020-10-14] MEDS: WHEAT DEXTRIN POWDER 244 GM BOTTLE PEG SCH ×3 (09:14→21:45)
[2020-10-14] MEDS: NYSTATIN POWDER 15 GM BOTTLE TOP SCH ×2 (09:14→21:44)
[2020-10-14] MEDS: MENTHOL/ZINC OXIDE OINT 71 GM JAR TOP SCH ×2 (09:14→21:44)
[2020-10-14] MEDS: SODIUM HYPOCHLORITE 0.25% IRRIG 473 ML BOTTLE TOP SCH ×2 (09:15→21:45)
[2020-10-14] MEDS: POTASSIUM CHLORIDE 20 MEQ TABLET PO SCH (09:15)
[2020-10-14] MEDS: POTASSIUM CHLORIDE 20 MEQ TABLET PO PRN ×3 (12:26→17:41)
[2020-10-15] MEDS: ALBUTEROL/IPRATROPIUM 3 ML NEB RESP TX SCH ×4 (00:40→20:06)
[2020-10-15] MEDS: INSULIN LISPRO 100 UNIT/ML SUBCUT SCH ×4 (00:42→19:15)
[2020-10-15] MEDS: APIXABAN 5 MG TABLET PO SCH ×2 (09:07→21:36)
[2020-10-15] MEDS: POTASSIUM CHLORIDE 20 MEQ TABLET PO SCH (09:07)
[2020-10-15] MEDS: METOCLOPRAMIDE 10 MG/10 ML UDCUP PEG SCH ×4 (09:07→21:36)
[2020-10-15] MEDS: METOPROLOL TARTRATE 25 MG TABLET PO SCH ×2 (09:07→21:36)
[2020-10-15] MEDS: WHEAT DEXTRIN POWDER 244 GM BOTTLE PEG SCH ×3 (09:11→21:36)
[2020-10-15] MEDS: NYSTATIN POWDER 15 GM BOTTLE TOP SCH ×2 (09:12→21:36)
[2020-10-15] MEDS: LACTOBACILLUS ACIDOPHILUS/BULGARICUS CAPLET PER TUBE SCH ×2 (09:12→21:36)
[2020-10-15] MEDS: MENTHOL/ZINC OXIDE OINT 71 GM JAR TOP SCH ×2 (09:12→21:37)
[2020-10-15] MEDS: SODIUM HYPOCHLORITE 0.25% IRRIG 473 ML BOTTLE TOP SCH ×2 (09:13→21:37)
[2020-10-15] MEDS: DEXTROSE 50% 25 GM/50 ML VIAL IV PRN (19:20)
[2020-10-16] MEDS: ALBUTEROL/IPRATROPIUM 3 ML NEB RESP TX SCH ×4 (01:10→20:22)
[2020-10-16 06:51] LABS: Basophils % 0.7 % (0.0-0.8); Eosinophils # 0.1 10*3/uL (0.0-0.87); Eosinophils % 1.9 % (0.00-10.9); Hematocrit 27.7 VOL% (35.7-47.0); Hemoglobin 8.2 GM/DL (12.0-16.0); Immature Granulocytes % 0.5 %; Immature Granulocytes Absolute 0.03 #; Lymphocytes # 1.2 10*3/uL (1.4-4.0); Lymphocytes % 19.4 % (21.3-54.2); Mean Corpuscular HGB Conc 29.6 GM/DL (32-36); Mean Corpuscular Volume 96.9 FL (87-102); Mean Platelet Volume 8.9 FL (9.6-12.0); Monocytes % 9.9 % (1.7-12.7); Neutrophils % 67.6 % (38.7-73.9); Platelet Count 285 T/CUMM (130-400); Red Blood Count 2.86 MC/CUMM (3.8-5.5); Red Cell Distribution Width 19.6 % (9.3-17.3); White Blood Count 5.9 T/CUMM (4-12)
[2020-10-16 07:10] LABS: Calcium 7.7 MG/DL (8.5-10.1); Osmolality,Calculated 275.5 MOS/KG (273-304); Potassium 3.9 MMOL/L (3.5-5.1)
[2020-10-16] MEDS: INSULIN LISPRO 100 UNIT/ML SUBCUT SCH ×3 (08:43→16:47)
[2020-10-16] MEDS: LACTOBACILLUS ACIDOPHILUS/BULGARICUS CAPLET PER TUBE SCH ×2 (09:50→21:17)
[2020-10-16] MEDS: METOCLOPRAMIDE 10 MG/10 ML UDCUP PEG SCH ×4 (09:50→21:17)
[2020-10-16] MEDS: MENTHOL/ZINC OXIDE OINT 71 GM JAR TOP SCH ×2 (09:50→21:18)
[2020-10-16] MEDS: WHEAT DEXTRIN POWDER 244 GM BOTTLE PEG SCH ×3 (09:50→21:17)
[2020-10-16] MEDS: POTASSIUM CHLORIDE 20 MEQ TABLET PO SCH (09:51)
[2020-10-16] MEDS: METOPROLOL TARTRATE 25 MG TABLET PO SCH ×2 (09:52→21:34)
[2020-10-16] MEDS: APIXABAN 5 MG TABLET PO SCH ×2 (09:52→21:16)
[2020-10-16] MEDS: SODIUM HYPOCHLORITE 0.25% IRRIG 473 ML BOTTLE TOP SCH ×2 (10:01→21:21)
[2020-10-16] MEDS: NYSTATIN POWDER 15 GM BOTTLE TOP SCH ×2 (14:00→21:18)
[2020-10-16] MEDS ORDERED: MAGNESIUM SULF RIDER 2 GM/50 ML PREMIX IV ONE (14:00)
[2020-10-17] MEDS: ALBUTEROL/IPRATROPIUM 3 ML NEB RESP TX SCH ×4 (00:39→19:41)
[2020-10-17] MEDS: INSULIN LISPRO 100 UNIT/ML SUBCUT SCH ×4 (00:43→18:41)
[2020-10-17 05:49] LABS: Basophils % 0.6 % (0.0-0.8); Eosinophils # 0.1 10*3/uL (0.0-0.87); Eosinophils % 1.6 % (0.00-10.9); Hematocrit 28.3 VOL% (35.7-47.0); Hemoglobin 8.6 GM/DL (12.0-16.0); Immature Granulocytes Absolute 0.05 #; Lymphocytes # 1.4 10*3/uL (1.4-4.0); Lymphocytes % 26.9 % (21.3-54.2); Mean Corpuscular HGB Conc 30.4 GM/DL (32-36); Mean Corpuscular Volume 96.3 FL (87-102); Mean Platelet Volume 8.8 FL (9.6-12.0); Monocytes % 13.1 % (1.7-12.7); Neutrophils % 56.8 % (38.7-73.9); Platelet Count 268 T/CUMM (130-400); Red Blood Count 2.94 MC/CUMM (3.8-5.5); Red Cell Distribution Width 19.2 % (9.3-17.3)
[2020-10-17 06:24] LABS: Calcium 7.6 MG/DL (8.5-10.1); Osmolality,Calculated 271.7 MOS/KG (273-304); Potassium 3.9 MMOL/L (3.5-5.1)
[2020-10-17] MEDS: METOPROLOL TARTRATE 25 MG TABLET PO SCH ×2 (08:37→21:45)
[2020-10-17] MEDS: METOCLOPRAMIDE 10 MG/10 ML UDCUP PEG SCH ×4 (08:37→21:45)
[2020-10-17] MEDS: POTASSIUM CHLORIDE 20 MEQ TABLET PO SCH (08:37)
[2020-10-17] MEDS: APIXABAN 5 MG TABLET PO SCH ×2 (08:37→21:45)
[2020-10-17] MEDS: LACTOBACILLUS ACIDOPHILUS/BULGARICUS CAPLET PER TUBE SCH ×2 (08:37→21:45)
[2020-10-17] MEDS: WHEAT DEXTRIN POWDER 244 GM BOTTLE PEG SCH ×3 (08:38→21:46)
[2020-10-17] MEDS: NYSTATIN POWDER 15 GM BOTTLE TOP SCH ×2 (08:38→21:46)
[2020-10-17] MEDS: SODIUM HYPOCHLORITE 0.25% IRRIG 473 ML BOTTLE TOP SCH ×2 (08:38→21:46)
[2020-10-17] MEDS: MENTHOL/ZINC OXIDE OINT 71 GM JAR TOP SCH ×2 (08:38→21:46)
[2020-10-18] MEDS: ALBUTEROL/IPRATROPIUM 3 ML NEB RESP TX SCH ×4 (00:20→19:15)
[2020-10-18] MEDS: INSULIN LISPRO 100 UNIT/ML SUBCUT SCH ×4 (01:04→18:21)
[2020-10-18 05:16] LABS: Basophils % 0.5 % (0.0-0.8); Eosinophils # 0.1 10*3/uL (0.0-0.87); Eosinophils % 2.3 % (0.00-10.9); Hematocrit 29.5 VOL% (35.7-47.0); Hemoglobin 8.9 GM/DL (12.0-16.0); Immature Granulocytes % 1.1 %; Immature Granulocytes Absolute 0.06 #; Lymphocytes # 1.1 10*3/uL (1.4-4.0); Lymphocytes % 18.9 % (21.3-54.2); Mean Corpuscular HGB Conc 30.2 GM/DL (32-36); Mean Corpuscular Volume 94.6 FL (87-102); Mean Platelet Volume 8.6 FL (9.6-12.0); Monocytes % 11.6 % (1.7-12.7); Neutrophils % 65.6 % (38.7-73.9); Platelet Count 258 T/CUMM (130-400); Red Blood Count 3.12 MC/CUMM (3.8-5.5); Red Cell Distribution Width 18.8 % (9.3-17.3); White Blood Count 5.6 T/CUMM (4-12)
[2020-10-18 05:39] LABS: Calcium 7.7 MG/DL (8.5-10.1); Osmolality,Calculated 275.4 MOS/KG (273-304); Potassium 3.3 MMOL/L (3.5-5.1)
[2020-10-18] MEDS: POTASSIUM CHLORIDE 20 MEQ/15 ML UDCUP PER TUBE PRN (06:01)
[2020-10-18] MEDS: POTASSIUM CHLORIDE 20 MEQ TABLET PO PRN ×2 (09:00→10:58)
[2020-10-18] MEDS: NYSTATIN POWDER 15 GM BOTTLE TOP SCH ×2 (09:00→21:02)
[2020-10-18] MEDS: LACTOBACILLUS ACIDOPHILUS/BULGARICUS CAPLET PER TUBE SCH ×2 (09:00→21:02)
[2020-10-18] MEDS: APIXABAN 5 MG TABLET PO SCH ×2 (09:00→21:02)
[2020-10-18] MEDS: WHEAT DEXTRIN POWDER 244 GM BOTTLE PEG SCH ×3 (09:01→21:02)
[2020-10-18] MEDS: SODIUM HYPOCHLORITE 0.25% IRRIG 473 ML BOTTLE TOP SCH ×2 (09:01→21:02)
[2020-10-18] MEDS: METOCLOPRAMIDE 10 MG/10 ML UDCUP PEG SCH ×4 (09:01→21:02)
[2020-10-18] MEDS: MENTHOL/ZINC OXIDE OINT 71 GM JAR TOP SCH ×2 (09:01→21:02)
[2020-10-18] MEDS: POTASSIUM CHLORIDE 20 MEQ TABLET PO SCH (09:30)
[2020-10-18] MEDS: METOPROLOL TARTRATE 25 MG TABLET PO SCH ×2 (09:30→21:02)
[2020-10-19] MEDS: INSULIN LISPRO 100 UNIT/ML SUBCUT SCH ×4 (00:44→18:19)
[2020-10-19] MEDS: ALBUTEROL/IPRATROPIUM 3 ML NEB RESP TX SCH ×5 (01:15→20:15)
[2020-10-19 05:55] LABS: Basophils % 0.6 % (0.0-0.8); Eosinophils # 0.1 10*3/uL (0.0-0.87); Eosinophils % 2.1 % (0.00-10.9); Hematocrit 26.8 VOL% (35.7-47.0); Immature Granulocytes % 0.9 %; Immature Granulocytes Absolute 0.04 #; Lymphocytes # 1.3 10*3/uL (1.4-4.0); Lymphocytes % 28.7 % (21.3-54.2); Mean Corpuscular HGB Conc 29.9 GM/DL (32-36); Mean Corpuscular Volume 96.1 FL (87-102); Mean Platelet Volume 8.9 FL (9.6-12.0); Monocytes % 11.3 % (1.7-12.7); Neutrophils % 56.4 % (38.7-73.9); Platelet Count 273 T/CUMM (130-400); Red Blood Count 2.79 MC/CUMM (3.8-5.5); Red Cell Distribution Width 18.6 % (9.3-17.3); White Blood Count 4.7 T/CUMM (4-12)
[2020-10-19 06:17] LABS: Bilirubin,Total 0.4 MG/DL (0.2-1.0); Calcium 7.8 MG/DL (8.5-10.1); Osmolality,Calculated 271.7 MOS/KG (273-304); Potassium 3.3 MMOL/L (3.5-5.1); Total Protein 4.3 G/DL (6.4-8.2)
[2020-10-19] MEDS: LACTOBACILLUS ACIDOPHILUS/BULGARICUS CAPLET PER TUBE SCH ×2 (09:13→21:34)
[2020-10-19] MEDS: POTASSIUM CHLORIDE 20 MEQ TABLET PO PRN ×3 (09:13→13:59)
[2020-10-19] MEDS: METOCLOPRAMIDE 10 MG/10 ML UDCUP PEG SCH ×4 (09:13→21:35)
[2020-10-19] MEDS: NYSTATIN POWDER 15 GM BOTTLE TOP SCH ×2 (09:13→21:35)
[2020-10-19] MEDS: APIXABAN 5 MG TABLET PO SCH ×2 (09:13→21:35)
[2020-10-19] MEDS: SODIUM HYPOCHLORITE 0.25% IRRIG 473 ML BOTTLE TOP SCH ×2 (09:14→21:35)
[2020-10-19] MEDS: WHEAT DEXTRIN POWDER 244 GM BOTTLE PEG SCH ×3 (09:14→21:36)
[2020-10-19] MEDS: MENTHOL/ZINC OXIDE OINT 71 GM JAR TOP SCH ×2 (09:14→21:36)
[2020-10-19] MEDS: METOPROLOL TARTRATE 25 MG TABLET PO SCH ×2 (09:29→21:34)
[2020-10-19] MEDS: POTASSIUM CHLORIDE 20 MEQ TABLET PO SCH (09:29)
[2020-10-19] MEDS: SODIUM HYPOCHLORITE 0.25% IRR 1 APPLIC in IV BAG 1 EACH IRRIG PRN (13:59)
[2020-10-20] MEDS: ALBUTEROL/IPRATROPIUM 3 ML NEB RESP TX SCH ×4 (01:30→19:48)
[2020-10-20] MEDS: INSULIN LISPRO 100 UNIT/ML SUBCUT SCH ×5 (03:12→20:30)
[2020-10-20 08:10] LABS: Calcium 7.6 MG/DL (8.5-10.1); Osmolality,Calculated 273.5 MOS/KG (273-304); Potassium 3.6 MMOL/L (3.5-5.1)
[2020-10-20] MEDS: LACTOBACILLUS ACIDOPHILUS/BULGARICUS CAPLET PER TUBE SCH ×2 (08:59→20:27)
[2020-10-20] MEDS: POTASSIUM CHLORIDE 20 MEQ TABLET PO SCH (08:59)
[2020-10-20] MEDS: METOCLOPRAMIDE 10 MG/10 ML UDCUP PEG SCH ×4 (08:59→20:28)
[2020-10-20] MEDS: APIXABAN 5 MG TABLET PO SCH ×2 (08:59→20:27)
[2020-10-20] MEDS: NYSTATIN POWDER 15 GM BOTTLE TOP SCH ×2 (09:00→20:28)
[2020-10-20] MEDS: METOPROLOL TARTRATE 25 MG TABLET PO SCH ×3 (09:00→20:27)
[2020-10-20] MEDS: SODIUM HYPOCHLORITE 0.25% IRRIG 473 ML BOTTLE TOP SCH ×2 (09:00→20:28)
[2020-10-20] MEDS: WHEAT DEXTRIN POWDER 244 GM BOTTLE PEG SCH ×3 (09:00→20:28)
[2020-10-20] MEDS: MENTHOL/ZINC OXIDE OINT 71 GM JAR TOP SCH ×2 (09:00→20:28)
[2020-10-20] MEDS: MAGNESIUM SULF RIDER 2 GM/50 ML PREMIX IV PRN (09:00)
[2020-10-21] MEDS: ALBUTEROL/IPRATROPIUM 3 ML NEB RESP TX SCH ×4 (01:29→19:46)
[2020-10-21 06:25] LABS: Basophils % 0.2 % (0.0-0.8); Eosinophils % 0.3 % (0.00-10.9); Hematocrit 30.6 VOL% (35.7-47.0); Hemoglobin 9.1 GM/DL (12.0-16.0); Immature Granulocytes % 0.7 %; Immature Granulocytes Absolute 0.06 #; Lymphocytes # 1.4 10*3/uL (1.4-4.0); Lymphocytes % 16.2 % (21.3-54.2); Mean Corpuscular HGB Conc 29.7 GM/DL (32-36); Mean Corpuscular Volume 95.3 FL (87-102); Mean Platelet Volume 9.7 FL (9.6-12.0); Monocytes % 6.9 % (1.7-12.7); Neutrophils % 75.7 % (38.7-73.9); Platelet Count 307 T/CUMM (130-400); Red Blood Count 3.21 MC/CUMM (3.8-5.5); Red Cell Distribution Width 18.3 % (9.3-17.3); White Blood Count 8.7 T/CUMM (4-12)
[2020-10-21 06:41] LABS: Calcium 8.2 MG/DL (8.5-10.1); Osmolality,Calculated 272.5 MOS/KG (273-304); Potassium 3.7 MMOL/L (3.5-5.1)
[2020-10-21] MEDS: INSULIN LISPRO 100 UNIT/ML SUBCUT SCH ×4 (07:11→21:40)
[2020-10-21] MEDS: METOPROLOL TARTRATE 25 MG TABLET PO SCH ×2 (09:23→21:33)
[2020-10-21] MEDS: METOCLOPRAMIDE 10 MG/10 ML UDCUP PEG SCH ×4 (09:23→21:33)
[2020-10-21] MEDS: POTASSIUM CHLORIDE 20 MEQ TABLET PO SCH (09:23)
[2020-10-21] MEDS: LACTOBACILLUS ACIDOPHILUS/BULGARICUS CAPLET PER TUBE SCH ×2 (09:23→21:33)
[2020-10-21] MEDS: APIXABAN 5 MG TABLET PO SCH ×2 (09:23→21:33)
[2020-10-21] MEDS: MENTHOL/ZINC OXIDE OINT 71 GM JAR TOP SCH ×2 (09:24→21:35)
[2020-10-21] MEDS: SODIUM HYPOCHLORITE 0.25% IRRIG 473 ML BOTTLE TOP SCH ×2 (09:24→21:34)
[2020-10-21] MEDS: NYSTATIN POWDER 15 GM BOTTLE TOP SCH (09:24)
[2020-10-21] MEDS: WHEAT DEXTRIN POWDER 244 GM BOTTLE PEG SCH ×3 (09:24→21:34)
[2020-10-22] MEDS: ALBUTEROL/IPRATROPIUM 3 ML NEB RESP TX SCH ×2 (02:19→06:49)
[2020-10-22] MEDS: INSULIN LISPRO 100 UNIT/ML SUBCUT SCH ×4 (07:19→21:09)
[2020-10-22] MEDS: METOCLOPRAMIDE 10 MG/10 ML UDCUP PEG SCH ×4 (09:04→21:08)
[2020-10-22] MEDS: APIXABAN 5 MG TABLET PO SCH ×2 (09:04→21:06)
[2020-10-22] MEDS: WHEAT DEXTRIN POWDER 244 GM BOTTLE PEG SCH ×3 (09:04→21:09)
[2020-10-22] MEDS: METOPROLOL TARTRATE 25 MG TABLET PO SCH ×2 (09:04→21:06)
[2020-10-22] MEDS: POTASSIUM CHLORIDE 20 MEQ TABLET PO SCH (09:04)
[2020-10-22] MEDS: SODIUM HYPOCHLORITE 0.25% IRRIG 473 ML BOTTLE TOP SCH ×2 (09:04→21:08)
[2020-10-22] MEDS: MENTHOL/ZINC OXIDE OINT 71 GM JAR TOP SCH ×2 (09:05→21:09)
[2020-10-22] MEDS: LACTOBACILLUS ACIDOPHILUS/BULGARICUS CAPLET PER TUBE SCH ×2 (09:05→21:06)
[2020-10-22] MEDS ORDERED: SKIN HEALING OINT (AQUAPHOR) 50 GM TUBE TOP PRN (09:52)
[2020-10-23] MEDS: SODIUM HYPOCHLORITE 0.25% IRR 1 APPLIC in IV BAG 1 EACH IRRIG PRN (00:55)
[2020-10-23 06:07] LABS: Basophils % 0.5 % (0.0-0.8); Eosinophils # 0.1 10*3/uL (0.0-0.87); Eosinophils % 2.6 % (0.00-10.9); Hematocrit 28.1 VOL% (35.7-47.0); Hemoglobin 8.3 GM/DL (12.0-16.0); Immature Granulocytes % 0.7 %; Immature Granulocytes Absolute 0.04 #; Lymphocytes # 1.2 10*3/uL (1.4-4.0); Lymphocytes % 21.7 % (21.3-54.2); Mean Corpuscular HGB Conc 29.5 GM/DL (32-36); Mean Corpuscular Volume 96.6 FL (87-102); Mean Platelet Volume 8.5 FL (9.6-12.0); Monocytes % 9.3 % (1.7-12.7); Neutrophils % 65.2 % (38.7-73.9); Platelet Count 280 T/CUMM (130-400); Red Blood Count 2.91 MC/CUMM (3.8-5.5); White Blood Count 5.5 T/CUMM (4-12)
[2020-10-23 06:28] LABS: Calcium 7.7 MG/DL (8.5-10.1); Potassium 3.4 MMOL/L (3.5-5.1)
[2020-10-23] MEDS: INSULIN LISPRO 100 UNIT/ML SUBCUT SCH ×4 (08:18→20:08)
[2020-10-23] MEDS: METOPROLOL TARTRATE 25 MG TABLET PO SCH ×2 (08:48→21:12)
[2020-10-23] MEDS: SODIUM HYPOCHLORITE 0.25% IRRIG 473 ML BOTTLE TOP SCH ×2 (10:53→21:15)
[2020-10-23] MEDS: METOCLOPRAMIDE 10 MG/10 ML UDCUP PEG SCH ×4 (10:54→20:55)
[2020-10-23] MEDS: LACTOBACILLUS ACIDOPHILUS/BULGARICUS CAPLET PER TUBE SCH ×2 (10:55→20:55)
[2020-10-23] MEDS: APIXABAN 5 MG TABLET PO SCH ×2 (10:55→20:55)
[2020-10-23] MEDS: MAGNESIUM SULF RIDER 2 GM/50 ML PREMIX IV PRN (10:55)
[2020-10-23] MEDS: POTASSIUM CHLORIDE 20 MEQ TABLET PO SCH (10:55)
[2020-10-23] MEDS: WHEAT DEXTRIN POWDER 244 GM BOTTLE PEG SCH ×3 (11:07→20:55)
[2020-10-23] MEDS: MENTHOL/ZINC OXIDE OINT 71 GM JAR TOP SCH ×2 (11:07→21:11)
[2020-10-24 05:40] LABS: Basophils # 0.1 10*3/uL (0.0-0.2); Eosinophils # 0.1 10*3/uL (0.0-0.87); Eosinophils % 2.2 % (0.00-10.9); Hematocrit 30.6 VOL% (35.7-47.0); Hemoglobin 9.4 GM/DL (12.0-16.0); Immature Granulocytes % 0.5 %; Immature Granulocytes Absolute 0.03 #; Lymphocytes # 1.6 10*3/uL (1.4-4.0); Lymphocytes % 25.4 % (21.3-54.2); Mean Corpuscular HGB Conc 30.7 GM/DL (32-36); Mean Corpuscular Volume 94.4 FL (87-102); Mean Platelet Volume 8.9 FL (9.6-12.0); Monocytes % 8.6 % (1.7-12.7); Neutrophils % 62.3 % (38.7-73.9); Platelet Count 324 T/CUMM (130-400); Red Blood Count 3.24 MC/CUMM (3.8-5.5); Red Cell Distribution Width 17.6 % (9.3-17.3); White Blood Count 6.3 T/CUMM (4-12)
[2020-10-24 06:09] LABS: Calcium 7.9 MG/DL (8.5-10.1); Osmolality,Calculated 270.8 MOS/KG (273-304); Potassium 3.2 MMOL/L (3.5-5.1)
[2020-10-24] MEDS: POTASSIUM CHLORIDE 20 MEQ TABLET PO PRN ×4 (06:29→12:35)
[2020-10-24] MEDS: INSULIN LISPRO 100 UNIT/ML SUBCUT SCH ×4 (07:24→20:42)
[2020-10-24] MEDS: WHEAT DEXTRIN POWDER 244 GM BOTTLE PEG SCH ×4 (08:32→20:41)
[2020-10-24] MEDS: LACTOBACILLUS ACIDOPHILUS/BULGARICUS CAPLET PER TUBE SCH ×3 (08:32→20:41)
[2020-10-24] MEDS: METOCLOPRAMIDE 10 MG/10 ML UDCUP PEG SCH ×4 (08:32→20:43)
[2020-10-24] MEDS: MENTHOL/ZINC OXIDE OINT 71 GM JAR TOP SCH ×3 (08:34→20:42)
[2020-10-24] MEDS: SODIUM HYPOCHLORITE 0.25% IRRIG 473 ML BOTTLE TOP SCH ×3 (08:34→20:42)
[2020-10-24] MEDS: POTASSIUM CHLORIDE 20 MEQ TABLET PO SCH ×2 (08:35→08:46)
[2020-10-24] MEDS: METOPROLOL TARTRATE 25 MG TABLET PO SCH ×3 (08:35→20:43)
[2020-10-24] MEDS: APIXABAN 5 MG TABLET PO SCH ×3 (08:35→20:41)
[2020-10-25] MEDS: APIXABAN 5 MG TABLET PO SCH ×2 (08:38→21:55)
[2020-10-25] MEDS: LACTOBACILLUS ACIDOPHILUS/BULGARICUS CAPLET PER TUBE SCH ×2 (08:38→21:55)
[2020-10-25] MEDS: POTASSIUM CHLORIDE 20 MEQ TABLET PO SCH (08:38)
[2020-10-25] MEDS: METOCLOPRAMIDE 10 MG/10 ML UDCUP PEG SCH ×4 (08:38→21:56)
[2020-10-25] MEDS: INSULIN LISPRO 100 UNIT/ML SUBCUT SCH ×4 (08:39→21:57)
[2020-10-25] MEDS: METOPROLOL TARTRATE 25 MG TABLET PO SCH ×3 (08:43→21:55)
[2020-10-25] MEDS: MENTHOL/ZINC OXIDE OINT 71 GM JAR TOP SCH ×2 (08:43→21:55)
[2020-10-25] MEDS: WHEAT DEXTRIN POWDER 244 GM BOTTLE PEG SCH ×3 (08:43→21:56)
[2020-10-25] MEDS: SODIUM HYPOCHLORITE 0.25% IRRIG 473 ML BOTTLE TOP SCH ×2 (08:44→21:56)
[2020-10-25 09:22] LABS: Calcium 7.7 MG/DL (8.5-10.1); Osmolality,Calculated 276.7 MOS/KG (273-304); Potassium 3.9 MMOL/L (3.5-5.1)
[2020-10-25] MEDS: MAGNESIUM SULF RIDER 2 GM/50 ML PREMIX IV PRN (10:24)
[2020-10-25] MEDS: POTASSIUM CHLORIDE 20 MEQ TABLET PO PRN (10:24)
[2020-10-25] MEDS ORDERED: MAGNESIUM SULF RIDER 2 GM/50 ML PREMIX IV ONE (14:35)
[2020-10-26] MEDS: SODIUM HYPOCHLORITE 0.25% IRR 1 APPLIC in IV BAG 1 EACH IRRIG PRN (04:44)
[2020-10-26] MEDS ORDERED: MAGNESIUM SULF RIDER 4 GM/100 ML PREMIX IV ONE (08:00)
[2020-10-26] MEDS: INSULIN LISPRO 100 UNIT/ML SUBCUT SCH ×4 (08:32→22:04)
[2020-10-26 08:48] LABS: Calcium 7.9 MG/DL (8.5-10.1); Osmolality,Calculated 272.8 MOS/KG (273-304); Potassium 3.7 MMOL/L (3.5-5.1)
[2020-10-26] MEDS: METOCLOPRAMIDE 10 MG/10 ML UDCUP PEG SCH ×4 (09:59→21:57)
[2020-10-26] MEDS: LACTOBACILLUS ACIDOPHILUS/BULGARICUS CAPLET PER TUBE SCH ×2 (10:00→21:57)
[2020-10-26] MEDS: POTASSIUM CHLORIDE 20 MEQ TABLET PO SCH (10:00)
[2020-10-26] MEDS: MENTHOL/ZINC OXIDE OINT 71 GM JAR TOP SCH ×2 (10:00→22:00)
[2020-10-26] MEDS: APIXABAN 5 MG TABLET PO SCH ×2 (10:00→21:57)
[2020-10-26] MEDS: METOPROLOL TARTRATE 25 MG TABLET PO SCH ×2 (10:00→21:57)
[2020-10-26] MEDS: WHEAT DEXTRIN POWDER 244 GM BOTTLE PEG SCH ×4 (10:01→22:00)
[2020-10-26] MEDS: SODIUM HYPOCHLORITE 0.25% IRRIG 473 ML BOTTLE TOP SCH ×2 (10:01→22:00)
[2020-10-27 06:58] LABS: Calcium 8.5 MG/DL (8.5-10.1); Osmolality,Calculated 270.1 MOS/KG (273-304); Potassium 3.9 MMOL/L (3.5-5.1)
[2020-10-27] MEDS: METOCLOPRAMIDE 10 MG/10 ML UDCUP PEG SCH ×2 (12:33→12:35)
[2020-10-27] MEDS: LACTOBACILLUS ACIDOPHILUS/BULGARICUS CAPLET PER TUBE SCH (12:34)
[2020-10-27] MEDS: METOPROLOL TARTRATE 25 MG TABLET PO SCH ×2 (12:35→22:12)
[2020-10-27] MEDS: POTASSIUM CHLORIDE 20 MEQ TABLET PO SCH (12:35)
[2020-10-27] MEDS: APIXABAN 5 MG TABLET PO SCH ×2 (12:35→22:12)
[2020-10-27] MEDS: WHEAT DEXTRIN POWDER 244 GM BOTTLE PEG SCH (12:58)
[2020-10-27] MEDS: INSULIN LISPRO 100 UNIT/ML SUBCUT SCH ×4 (12:59→22:12)
[2020-10-27] MEDS: MENTHOL/ZINC OXIDE OINT 71 GM JAR TOP SCH ×2 (12:59→22:13)
[2020-10-27] MEDS: SODIUM HYPOCHLORITE 0.25% IRRIG 473 ML BOTTLE TOP SCH ×2 (13:00→22:12)
[2020-10-27] MEDS: LACTOBACILLUS ACIDOPHILUS/BULGARICUS CAPLET PO SCH ×2 (13:19→22:12)
[2020-10-28] MEDS: SODIUM HYPOCHLORITE 0.25% IRRIG 473 ML BOTTLE TOP SCH ×2 (09:32→20:47)
[2020-10-28] MEDS: INSULIN LISPRO 100 UNIT/ML SUBCUT SCH ×4 (09:32→20:48)
[2020-10-28] MEDS: APIXABAN 5 MG TABLET PO SCH ×2 (09:32→20:55)
[2020-10-28] MEDS: METOPROLOL TARTRATE 25 MG TABLET PO SCH ×2 (09:32→20:55)
[2020-10-28] MEDS: POTASSIUM CHLORIDE 20 MEQ TABLET PO SCH (09:32)
[2020-10-28] MEDS: LACTOBACILLUS ACIDOPHILUS/BULGARICUS CAPLET PO SCH ×2 (09:32→20:54)
[2020-10-28] MEDS: MENTHOL/ZINC OXIDE OINT 71 GM JAR TOP SCH ×2 (09:32→20:55)
[2020-10-29] MEDS: INSULIN LISPRO 100 UNIT/ML SUBCUT SCH ×4 (07:46→21:34)
[2020-10-29] MEDS: LACTOBACILLUS ACIDOPHILUS/BULGARICUS CAPLET PO SCH ×2 (09:29→21:32)
[2020-10-29] MEDS: POTASSIUM CHLORIDE 20 MEQ TABLET PO SCH (09:29)
[2020-10-29] MEDS: APIXABAN 5 MG TABLET PO SCH ×2 (09:29→21:33)
[2020-10-29] MEDS: MENTHOL/ZINC OXIDE OINT 71 GM JAR TOP SCH ×2 (09:30→21:32)
[2020-10-29] MEDS: METOPROLOL TARTRATE 25 MG TABLET PO SCH ×2 (09:30→21:32)
[2020-10-29] MEDS: SODIUM HYPOCHLORITE 0.25% IRR 1 APPLIC in IV BAG 1 EACH IRRIG PRN (09:56)
[2020-10-29] MEDS: SODIUM HYPOCHLORITE 0.25% IRRIG 473 ML BOTTLE TOP SCH ×2 (10:36→21:33)
[2020-10-30] MEDS: INSULIN LISPRO 100 UNIT/ML SUBCUT SCH ×4 (07:54→23:09)
[2020-10-30] MEDS: APIXABAN 5 MG TABLET PO SCH ×2 (09:43→22:13)
[2020-10-30] MEDS: MENTHOL/ZINC OXIDE OINT 71 GM JAR TOP SCH ×2 (09:43→23:05)
[2020-10-30] MEDS: POTASSIUM CHLORIDE 20 MEQ TABLET PO SCH (09:43)
[2020-10-30] MEDS: METOPROLOL TARTRATE 25 MG TABLET PO SCH ×2 (09:43→22:51)
[2020-10-30] MEDS: SODIUM HYPOCHLORITE 0.25% IRRIG 473 ML BOTTLE TOP SCH ×2 (09:43→23:06)
[2020-10-30] MEDS: LACTOBACILLUS ACIDOPHILUS/BULGARICUS CAPLET PO SCH ×2 (09:43→22:13)
[2020-10-31 06:06] LABS: Basophils % 0.6 % (0.0-0.8); Eosinophils # 0.1 10*3/uL (0.0-0.87); Eosinophils % 0.7 % (0.00-10.9); Hematocrit 27.4 VOL% (35.7-47.0); Hemoglobin 8.4 GM/DL (12.0-16.0); Immature Granulocytes % 0.7 %; Immature Granulocytes Absolute 0.05 #; Lymphocytes # 0.9 10*3/uL (1.4-4.0); Lymphocytes % 12.9 % (21.3-54.2); Mean Corpuscular HGB Conc 30.7 GM/DL (32-36); Mean Corpuscular Volume 94.2 FL (87-102); Mean Platelet Volume 8.8 FL (9.6-12.0); Monocytes % 6.6 % (1.7-12.7); Neutrophils % 78.5 % (38.7-73.9); Platelet Count 274 T/CUMM (130-400); Red Blood Count 2.91 MC/CUMM (3.8-5.5); Red Cell Distribution Width 17.2 % (9.3-17.3); White Blood Count 6.7 T/CUMM (4-12)
[2020-10-31 06:40] LABS: Calcium 7.7 MG/DL (8.5-10.1); Osmolality,Calculated 274.4 MOS/KG (273-304); Potassium 3.4 MMOL/L (3.5-5.1)
[2020-10-31] MEDS: DEXTROSE 50% 25 GM/50 ML VIAL IV PRN (06:57)
[2020-10-31] MEDS: INSULIN LISPRO 100 UNIT/ML SUBCUT SCH ×2 (07:25→11:54)
[2020-10-31] MEDS: METOPROLOL TARTRATE 25 MG TABLET PO SCH (08:36)
[2020-10-31] MEDS: MENTHOL/ZINC OXIDE OINT 71 GM JAR TOP SCH ×2 (08:36→21:55)
[2020-10-31] MEDS: POTASSIUM CHLORIDE 20 MEQ TABLET PO SCH (08:36)
[2020-10-31] MEDS: APIXABAN 5 MG TABLET PO SCH ×2 (08:36→21:55)
[2020-10-31] MEDS: LACTOBACILLUS ACIDOPHILUS/BULGARICUS CAPLET PO SCH ×2 (08:36→21:54)
[2020-10-31] MEDS: SODIUM HYPOCHLORITE 0.25% IRRIG 473 ML BOTTLE TOP SCH ×2 (08:37→21:55)
[2020-10-31] MEDS: POTASSIUM CHLORIDE 20 MEQ TABLET PO PRN ×2 (09:41→11:55)
[2020-10-31] MEDS: MAGNESIUM SULF RIDER 2 GM/50 ML PREMIX IV PRN (11:54)
[2020-10-31] MEDS ORDERED: POTASSIUM CHLORIDE 20 MEQ TABLET PO ONE (12:00)
[2020-10-31] MEDS ORDERED: MAGNESIUM SULF RIDER 2 GM/50 ML PREMIX IV ONE (12:00)
[2020-11-01 07:10] LABS: Calcium 8.1 MG/DL (8.5-10.1); Osmolality,Calculated 274.5 MOS/KG (273-304); Potassium 4.2 MMOL/L (3.5-5.1)
[2020-11-01] MEDS: metFORMIN 500 MG TABLET PO SCH (09:07)
[2020-11-01] MEDS: LACTOBACILLUS ACIDOPHILUS/BULGARICUS CAPLET PO SCH ×2 (09:07→20:28)
[2020-11-01] MEDS: METOPROLOL TARTRATE 25 MG TABLET PO SCH ×3 (09:08→20:28)
[2020-11-01] MEDS: APIXABAN 5 MG TABLET PO SCH ×2 (09:08→20:28)
[2020-11-01] MEDS: POTASSIUM CHLORIDE 20 MEQ TABLET PO SCH (09:08)
[2020-11-01] MEDS: MENTHOL/ZINC OXIDE OINT 71 GM JAR TOP SCH ×2 (09:49→22:50)
[2020-11-01] MEDS: SODIUM HYPOCHLORITE 0.25% IRRIG 473 ML BOTTLE TOP SCH ×2 (09:49→22:52)
[2020-11-02] MEDS: POTASSIUM CHLORIDE 20 MEQ TABLET PO SCH (09:36)
[2020-11-02] MEDS: MENTHOL/ZINC OXIDE OINT 71 GM JAR TOP SCH ×2 (09:37→20:41)
[2020-11-02] MEDS: LACTOBACILLUS ACIDOPHILUS/BULGARICUS CAPLET PO SCH ×2 (09:37→20:41)
[2020-11-02] MEDS: APIXABAN 5 MG TABLET PO SCH ×2 (09:37→20:41)
[2020-11-02] MEDS: metFORMIN 500 MG TABLET PO SCH (09:37)
[2020-11-02] MEDS: METOPROLOL TARTRATE 25 MG TABLET PO SCH ×2 (10:37→20:41)
[2020-11-02] MEDS: SODIUM HYPOCHLORITE 0.25% IRRIG 473 ML BOTTLE TOP SCH ×2 (10:37→20:42)
[2020-11-03] MEDS: LACTOBACILLUS ACIDOPHILUS/BULGARICUS CAPLET PO SCH ×2 (09:46→21:29)
[2020-11-03] MEDS: metFORMIN 500 MG TABLET PO SCH (09:47)
[2020-11-03] MEDS: MENTHOL/ZINC OXIDE OINT 71 GM JAR TOP SCH ×2 (09:47→21:30)
[2020-11-03] MEDS: POTASSIUM CHLORIDE 20 MEQ TABLET PO SCH (09:47)
[2020-11-03] MEDS: APIXABAN 5 MG TABLET PO SCH ×2 (09:47→21:29)
[2020-11-03] MEDS: METOPROLOL TARTRATE 25 MG TABLET PO SCH ×2 (09:47→21:29)
[2020-11-03] MEDS: SODIUM HYPOCHLORITE 0.25% IRRIG 473 ML BOTTLE TOP SCH ×2 (14:43→21:30)
[2020-11-04 05:49] LABS: Basophils % 0.4 % (0.0-0.8); Eosinophils # 0.1 10*3/uL (0.0-0.87); Eosinophils % 0.8 % (0.00-10.9); Hematocrit 26.1 VOL% (35.7-47.0); Immature Granulocytes % 0.4 %; Immature Granulocytes Absolute 0.04 #; Lymphocytes # 1.8 10*3/uL (1.4-4.0); Lymphocytes % 18.9 % (21.3-54.2); Mean Corpuscular HGB Conc 30.7 GM/DL (32-36); Mean Corpuscular Volume 93.2 FL (87-102); Mean Platelet Volume 8.7 FL (9.6-12.0); Monocytes % 5.6 % (1.7-12.7); Neutrophils % 73.9 % (38.7-73.9); Platelet Count 234 T/CUMM (130-400); White Blood Count 9.5 T/CUMM (4-12)
[2020-11-04 06:21] LABS: Calcium 7.8 MG/DL (8.5-10.1); Osmolality,Calculated 276.5 MOS/KG (273-304); Potassium 3.8 MMOL/L (3.5-5.1)
[2020-11-04] MEDS ORDERED: MAGNESIUM SULF RIDER 4 GM/100 ML PREMIX IV STA (07:44)
[2020-11-04] MEDS: APIXABAN 5 MG TABLET PO SCH ×2 (09:00→21:24)
[2020-11-04] MEDS: LACTOBACILLUS ACIDOPHILUS/BULGARICUS CAPLET PO SCH ×2 (09:00→21:24)
[2020-11-04] MEDS: metFORMIN 500 MG TABLET PO SCH (09:00)
[2020-11-04] MEDS: METOPROLOL TARTRATE 25 MG TABLET PO SCH ×2 (09:00→21:23)
[2020-11-04] MEDS: POTASSIUM CHLORIDE 20 MEQ TABLET PO SCH (09:00)
[2020-11-04] MEDS: SODIUM HYPOCHLORITE 0.25% IRRIG 473 ML BOTTLE TOP SCH ×2 (10:26→21:24)
[2020-11-04] MEDS: MENTHOL/ZINC OXIDE OINT 71 GM JAR TOP SCH ×2 (13:29→21:24)
[2020-11-04] MEDS: traZODone 50 MG TABLET PO PRN (21:46)
[2020-11-05 06:58] LABS: Calcium 7.6 MG/DL (8.5-10.1); Osmolality,Calculated 277.4 MOS/KG (273-304); Potassium 3.5 MMOL/L (3.5-5.1)
[2020-11-05] MEDS: metFORMIN 500 MG TABLET PO SCH (09:02)
[2020-11-05] MEDS: POTASSIUM CHLORIDE 20 MEQ TABLET PO PRN (09:03)
[2020-11-05] MEDS: LACTOBACILLUS ACIDOPHILUS/BULGARICUS CAPLET PO SCH ×2 (09:03→21:12)
[2020-11-05] MEDS: POTASSIUM CHLORIDE 20 MEQ TABLET PO SCH (09:03)
[2020-11-05] MEDS: METOPROLOL TARTRATE 25 MG TABLET PO SCH ×2 (09:04→21:13)
[2020-11-05] MEDS: MENTHOL/ZINC OXIDE OINT 71 GM JAR TOP SCH ×2 (09:04→21:13)
[2020-11-05] MEDS: APIXABAN 5 MG TABLET PO SCH ×2 (09:48→21:12)
[2020-11-05] MEDS: SODIUM HYPOCHLORITE 0.25% IRRIG 473 ML BOTTLE TOP SCH ×2 (11:54→21:13)
[2020-11-05] MEDS: traZODone 50 MG TABLET PO PRN (21:13)
[2020-11-06] MEDS: APIXABAN 5 MG TABLET PO SCH ×2 (08:51→20:33)
[2020-11-06] MEDS: LACTOBACILLUS ACIDOPHILUS/BULGARICUS CAPLET PO SCH ×2 (08:51→20:33)
[2020-11-06] MEDS: METOPROLOL TARTRATE 25 MG TABLET PO SCH ×2 (08:51→20:35)
[2020-11-06] MEDS: POTASSIUM CHLORIDE 20 MEQ TABLET PO SCH (08:51)
[2020-11-06] MEDS: SODIUM HYPOCHLORITE 0.25% IRRIG 473 ML BOTTLE TOP SCH ×2 (08:52→20:37)
[2020-11-06] MEDS: metFORMIN 500 MG TABLET PO SCH ×2 (08:52→16:09)
[2020-11-06] MEDS: MENTHOL/ZINC OXIDE OINT 71 GM JAR TOP SCH ×2 (08:52→20:36)
[2020-11-07 05:26] LABS: Basophils # 0.1 10*3/uL (0.0-0.2); Basophils % 0.6 % (0.0-0.8); Eosinophils # 0.1 10*3/uL (0.0-0.87); Eosinophils % 1.1 % (0.00-10.9); Hematocrit 31.3 VOL% (35.7-47.0); Hemoglobin 9.5 GM/DL (12.0-16.0); Immature Granulocytes % 0.6 %; Immature Granulocytes Absolute 0.05 #; Lymphocytes # 1.7 10*3/uL (1.4-4.0); Lymphocytes % 18.7 % (21.3-54.2); Mean Corpuscular HGB Conc 30.4 GM/DL (32-36); Mean Corpuscular Volume 95.4 FL (87-102); Mean Platelet Volume 9.3 FL (9.6-12.0); Monocytes % 4.9 % (1.7-12.7); Neutrophils % 74.1 % (38.7-73.9); Platelet Count 300 T/CUMM (130-400); Red Blood Count 3.28 MC/CUMM (3.8-5.5); Red Cell Distribution Width 17.2 % (9.3-17.3); White Blood Count 8.9 T/CUMM (4-12)
[2020-11-07 05:54] LABS: Osmolality,Calculated 274.7 MOS/KG (273-304); Potassium 3.8 MMOL/L (3.5-5.1)
[2020-11-07] MEDS ORDERED: MAGNESIUM SULF RIDER 2 GM/50 ML PREMIX IV PRN (07:53)
[2020-11-07] MEDS: metFORMIN 500 MG TABLET PO SCH ×2 (08:21→17:34)
[2020-11-07] MEDS: METOPROLOL TARTRATE 25 MG TABLET PO SCH ×2 (08:21→22:32)
[2020-11-07] MEDS: POTASSIUM CHLORIDE 20 MEQ TABLET PO SCH (08:22)
[2020-11-07] MEDS: APIXABAN 5 MG TABLET PO SCH ×2 (08:22→22:32)
[2020-11-07] MEDS: LACTOBACILLUS ACIDOPHILUS/BULGARICUS CAPLET PO SCH ×2 (08:22→22:32)
[2020-11-07] MEDS: SODIUM HYPOCHLORITE 0.25% IRRIG 473 ML BOTTLE TOP SCH ×2 (08:52→22:32)
[2020-11-07] MEDS: MENTHOL/ZINC OXIDE OINT 71 GM JAR TOP SCH ×2 (08:52→22:32)
[2020-11-08 06:01] LABS: Basophils # 0.1 10*3/uL (0.0-0.2); Basophils % 0.8 % (0.0-0.8); Eosinophils # 0.2 10*3/uL (0.0-0.87); Eosinophils % 3.1 % (0.00-10.9); Hematocrit 24.6 VOL% (35.7-47.0); Hemoglobin 7.7 GM/DL (12.0-16.0); Immature Granulocytes % 0.5 %; Immature Granulocytes Absolute 0.03 #; Lymphocytes # 1.3 10*3/uL (1.4-4.0); Lymphocytes % 21.3 % (21.3-54.2); Mean Corpuscular HGB Conc 31.3 GM/DL (32-36); Mean Corpuscular Volume 92.8 FL (87-102); Mean Platelet Volume 8.6 FL (9.6-12.0); Monocytes % 7.3 % (1.7-12.7); Platelet Count 251 T/CUMM (130-400); Red Blood Count 2.65 MC/CUMM (3.8-5.5); Red Cell Distribution Width 17.1 % (9.3-17.3); White Blood Count 6.1 T/CUMM (4-12)
[2020-11-08 06:21] LABS: Calcium 7.9 MG/DL (8.5-10.1); Osmolality,Calculated 275.5 MOS/KG (273-304); Potassium 3.3 MMOL/L (3.5-5.1)
[2020-11-08] MEDS: MENTHOL/ZINC OXIDE OINT 71 GM JAR TOP SCH (09:00)
[2020-11-08] MEDS: APIXABAN 5 MG TABLET PO SCH (09:00)
[2020-11-08] MEDS: SODIUM HYPOCHLORITE 0.25% IRRIG 473 ML BOTTLE TOP SCH (09:00)
[2020-11-08] MEDS: metFORMIN 500 MG TABLET PO SCH (09:00)
[2020-11-08] MEDS: METOPROLOL TARTRATE 25 MG TABLET PO SCH (09:00)
[2020-11-08] MEDS: LACTOBACILLUS ACIDOPHILUS/BULGARICUS CAPLET PO SCH (09:00)
[2020-11-08] MEDS: POTASSIUM CHLORIDE 20 MEQ TABLET PO SCH (09:00)
[2020-11-08] MEDS: POTASSIUM CHLORIDE 20 MEQ TABLET PO PRN (10:56)
[2020-11-08 11:54] VITALS: BP 106/77
== END 2020-11-08 14:15 | disposition home health service (06) | DRG 853 ==
LOC: N.ED 23:26 → SUATTDRO 08-29 04:07 → N.EDINP 08-29 04:07 → N.CC 08-29 04:59 → N.3E 09-08 18:23
PROVIDERS: ADMIT Internal Medicine; ATTEND Internal Medicine
PROC: EGDWPEG (ICD-10-PCS; 2020-09-27 09:35)

== ENCOUNTER 2020-12-21 14:44 | Inpatient (IN) ==
[2020-12-21 15:32] LABS: Basophils % 0.1 % (0.0-0.8); Hematocrit 25.2 VOL% (35.7-47.0); Hemoglobin 8.4 GM/DL (12.0-16.0); Immature Granulocytes % 1.2 %; Immature Granulocytes Absolute 0.15 #; Lymphocytes # 0.9 10*3/uL (1.4-4.0); Lymphocytes % 7.3 % (21.3-54.2); Mean Corpuscular HGB Conc 33.3 GM/DL (32-36); Mean Platelet Volume 11.1 FL (9.6-12.0); Monocytes % 1.2 % (1.7-12.7); NRBC # 0.02 10*3/uL; Neutrophils % 90.2 % (38.7-73.9); Platelet Count 111 T/CUMM (130-400); Red Cell Distribution Width 16.5 % (9.3-17.3); White Blood Count 12.3 T/CUMM (4-12)
[2020-12-21] MEDS ORDERED: NOREPINEPHRINE 4 MG/4 ML VIAL IV ONE (15:36)
[2020-12-21 15:51] LABS: Alanine Aminotransferase 48 U/L (13-56); Albumin 0.9 G/DL (3.4-5.0); Alkaline Phosphatase 237 U/L (45-117); Aspartate Amino Transferase 61 U/L (0-37); Blood Urea Nitrogen 17 MG/DL (7-18); Calcium 6.9 MG/DL (8.5-10.1); Carbon Dioxide 21 MMOL/L (21-32); Estimated Glom Filtration Rate 36 ML/MIN; Osmolality,Calculated 272.7 MOS/KG (273-304); Potassium 3.1 MMOL/L (3.5-5.1); Sodium 138 MMOL/L (136-145); Total Protein 3.7 G/DL (6.4-8.2)
[2020-12-21 15:59] LABS: Anisocytosis 1+; Band Neutrophils 16 % (0-10); Lymphocytes 6 % (20-55); Metamyelocytes 1 %; Nucleated Red Blood Cells 2 (0-5); Platelet Estimate Adequate; Segmented Neutrophils 76 % (50-85); Target Cells 1+; Total Cells Counted 100
[2020-12-21 16:00] LABS: Macrocytosis 1+
[2020-12-21 16:05] LABS: Glucose 23 MG/DL (74-106)
[2020-12-21] MEDS ORDERED: DEXTROSE 50% 25 GM/50 ML VIAL IV STA (16:06)
[2020-12-21] MEDS ORDERED: PIPERACILLIN/TAZOBACTAM 3,375 MG in SODIUM CHLORIDE 0.9% 100 ML IV STA (16:06)
[2020-12-21] MEDS ORDERED: SODIUM CHLORIDE 0.9% 1,700 ML IV ONE (16:07)
[2020-12-21] MEDS ORDERED: VANCOMYCIN INJ 1,000 MG in SODIUM CHLORIDE 0.9% 250 ML IV STA (16:07)
[2020-12-21] MEDS ORDERED: NOREPINEPHRINE 8 MG in SODIUM CHLORIDE 0.9% 242 ML IV PRN (16:11)
[2020-12-21] MEDS ORDERED: ATROPINE 1 MG/10 ML SYRINGE IV STA (16:11)
[2020-12-21] MEDS ORDERED: ONDANSETRON 4 MG/2 ML VIAL IV PRN (16:39)
[2020-12-21] MEDS ORDERED: ACETAMINOPHEN 325 MG TABLET PO PRN (16:39)
[2020-12-21] MEDS ORDERED: GLUCAGON 1 MG VIAL IM PRN ×2 (16:39→21:22)
[2020-12-21] MEDS ORDERED: MEROPENEM 2,000 MG in SODIUM CHLORIDE 0.9% 100 ML IV SCH (17:00)
[2020-12-21] MEDS ORDERED: FONDAPARINUX 2.5 MG/0.5 ML SYRINGE SUBCUT SCH (17:00)
[2020-12-21] MEDS ORDERED: MIDAZOLAM 2 MG/2 ML VIAL ONE (17:09)
[2020-12-21] MEDS ORDERED: MIDAZOLAM 2 MG/2 ML VIAL IV ONE (17:19)
[2020-12-21] MEDS ORDERED: SODIUM CHLORIDE 0.9% 500 ML IV ONE (18:14)
[2020-12-21 19:33] LABS: ABG HCO3 15.7 MMOL/L (20-26); ABG Oxygen Saturation 99.8 % (95-100)
[2020-12-21] MEDS ORDERED: EPINEPHrine 1 MG/ML VIAL ONE (19:33)
[2020-12-21 19:36] LABS: ABG PCO2 17.5 MM HG (35-48)
[2020-12-21] MEDS ORDERED: MIDAZOLAM 100 MG in SODIUM CHLORIDE 0.9% 80 ML IV PRN (19:46)
[2020-12-21] MEDS ORDERED: fentaNYL INJ 1,250 MCG in SODIUM CHLORIDE 0.9% 225 ML IV PRN (19:47)
[2020-12-21] MEDS ORDERED: CISATRACURIUM 200 MG in SODIUM CHLORIDE 0.9% 180 ML IV PRN (19:55)
[2020-12-21] MEDS: MEROPENEM 500 MG in SODIUM CHLORIDE 0.9% 100 ML IV SCH (19:58)
[2020-12-21] MEDS: HYDROCORTISONE 100 MG VIAL IV SCH ×2 (19:58→23:13)
[2020-12-21 20:06] LABS: Alanine Aminotransferase 52 U/L (13-56); Albumin 0.9 G/DL (3.4-5.0); Alkaline Phosphatase 227 U/L (45-117); Amylase 21 U/L (25-115); Aspartate Amino Transferase 68 U/L (0-37); Blood Urea Nitrogen 17 MG/DL (7-18); Calcium 6.4 MG/DL (8.5-10.1); Carbon Dioxide 11 MMOL/L (21-32); Estimated Glom Filtration Rate 31 ML/MIN; Glucose 92 MG/DL (74-106); Osmolality,Calculated 278.5 MOS/KG (273-304); Potassium 2.8 MMOL/L (3.5-5.1); Sodium 139 MMOL/L (136-145); Total Protein 3.7 G/DL (6.4-8.2)
[2020-12-21] MEDS ORDERED: FAMOTIDINE 20 MG/2 ML VIAL IV SCH (20:30)
[2020-12-21] MEDS ORDERED: POTASSIUM CHLORIDE RIDER 10 MEQ/100 ML PREMIX IV PRN (20:47)
[2020-12-21] MEDS ORDERED: MAGNESIUM SULF RIDER 2 GM/50 ML PREMIX IV PRN (20:47)
[2020-12-21] MEDS ORDERED: MAGNESIUM SULF RIDER 4 GM/100 ML PREMIX IV PRN (20:47)
[2020-12-21 21:11] LABS: ABG Base Excess -16.6 MMOL/L (-2.5-2.5); ABG HCO3 9.1 MMOL/L (20-26); ABG PCO2 21.5 MM HG (35-48); ABG PH 7.244 (7.35-7.45); ABG PO2 469.6 MM HG (80-95); ABG TCO2 9.8 MMOL/L (23-27)
[2020-12-21] MEDS ORDERED: SODIUM CHLORIDE 0.9% 2,000 ML IV ONE (21:19)
[2020-12-21] MEDS ORDERED: DEXTROSE 50% 25 GM/50 ML VIAL IV PRN (21:22)
[2020-12-21] MEDS: MINERAL OIL/PETROLATUM OPH OINT 3.5 GM TUBE BOTH EYES SCH (22:02)
[2020-12-21] MEDS: POTASSIUM CHLORIDE RIDER 20 MEQ/100 ML PREMIX IV PRN (22:57)
[2020-12-21] MEDS: DEXTROSE 50% 25 GM/50 ML VIAL IV PRN (22:57)
[2020-12-21] MEDS: INSULIN REGULAR 100 UNIT/ML IV SCH (23:01)
[2020-12-22] MEDS: POTASSIUM CHLORIDE RIDER 20 MEQ/100 ML PREMIX IV PRN ×2 (00:08→13:00)
[2020-12-22 00:13] LABS: Bilirubin,Urine Negative (Negative); Blood, Urine Large mg/dL (Negative); Glucose,Urine (UA) 50 mg/dL (Negative); Hyaline Casts,Urine 7 /LPF (0-3); Ketones,Urine Negative (Negative); Mucus,Urine Occasional /LPF (Occasional); Nitrite,Urine Negative (Negative); Protein,Urine 100 MG/DL; RBC,Urine 135 /HPF (0-4); Squamous Epithelial Cell,Urine Occasional /HPF (0-10); Urine Appearance CLOUDY (Clear); Urine Specific Gravity 1.011 (1.001-1.035); Urine Urobilinogen < 2.0 EU/DL (0.2-1.0)
[2020-12-22 00:14] LABS: Urine Color Yellow (Yellow)
[2020-12-22] MEDS: NOREPINEPHRINE 16 MG in SODIUM CHLORIDE 0.9% 234 ML IV PRN ×4 (00:14→12:55)
[2020-12-22] MEDS: INSULIN REGULAR 100 UNIT/ML IV SCH ×9 (00:15→16:10)
[2020-12-22 00:31] LABS: Barbiturates Screen,Urine Negative (Negative); Benzodiazepines Screen,Urine Positive (Negative); Cannabinoid Screen,Urine Negative (Negative); Opiate Screen,Urine Negative (Negative); Phencyclidine Screen,Urine Negative (Negative)
[2020-12-22 00:31] LABS: CKMB % 5.7 %; Osmolality,Calculated 286.1 MOS/KG (273-304); Potassium 3.7 MMOL/L (3.5-5.1)
[2020-12-22 00:35] LABS: Calcium 5.7 MG/DL (8.5-10.1)
[2020-12-22 00:36] LABS: High Sensitive Troponin I* 289.4 ng/L (0-54)
[2020-12-22] MEDS ORDERED: LACTATED RINGERS 1,000 ML IV ONE (00:42)
[2020-12-22] MEDS ORDERED: CALCIUM GLUCONATE 1,000 MG in SODIUM CHLORIDE 0.9% 100 ML IV ONE (00:43)
[2020-12-22 01:00] LABS: Basophils % 0.1 % (0.0-0.8); Eosinophils % 0.1 % (0.00-10.9); Hematocrit 19.4 VOL% (35.7-47.0); Immature Granulocytes Absolute 0.15 #; Lymphocytes # 0.8 10*3/uL (1.4-4.0); Lymphocytes % 5.3 % (21.3-54.2); Mean Corpuscular Volume 89.4 FL (87-102); Monocytes % 0.9 % (1.7-12.7); Neutrophils % 92.6 % (38.7-73.9); Platelet Count 105 T/CUMM (130-400); Red Blood Count 2.17 MC/CUMM (3.8-5.5); Red Cell Distribution Width 16.4 % (9.3-17.3); White Blood Count 14.6 T/CUMM (4-12)
[2020-12-22 01:01] LABS: INR 3.1; PT Patient Result 32.4 SECS (10.5-12.0)
[2020-12-22 01:03] LABS: Hemoglobin 6.2 GM/DL (12.0-16.0)
[2020-12-22 01:06] LABS: Partial Thromboplastin Time 126.6 SECS (23.9-33.8)
[2020-12-22] MEDS ORDERED: SODIUM CHLORIDE 0.9% 1,000 ML IV PRN ×2 (01:10→13:50)
[2020-12-22 01:48] LABS: Band Neutrophils 1 % (0-10); Hypochromasia 2+; Lymphocytes 5 % (20-55); Microcytosis Slight; Platelet Estimate Adequate; Segmented Neutrophils 92 % (50-85); Total Cells Counted 100
[2020-12-22] MEDS: MEROPENEM 500 MG in SODIUM CHLORIDE 0.9% 100 ML IV SCH ×2 (02:08→09:45)
[2020-12-22] MEDS: DEXTROSE 50% 25 GM/50 ML VIAL IV PRN ×2 (05:19→06:47)
[2020-12-22] MEDS: HYDROCORTISONE 100 MG VIAL IV SCH ×2 (05:28→10:55)
[2020-12-22 05:34] LABS: ABG Base Excess -28.3 MMOL/L (-2.5-2.5); ABG HCO3 5.8 MMOL/L (20-26); ABG Oxygen Saturation 98.3 % (95-100); ABG PCO2 32.2 MM HG (35-48); ABG TCO2 5.7 MMOL/L (23-27)
[2020-12-22 05:36] LABS: ABG PH 6.839 (7.35-7.45)
[2020-12-22] MEDS ORDERED: SODIUM BICARBONATE 50 MEQ/50 ML VIAL IV ONE ×2 (05:38→10:37)
[2020-12-22 05:43] LABS: Basophils # 0.1 10*3/uL (0.0-0.2); Basophils % 0.4 % (0.0-0.8); Eosinophils # 0.4 10*3/uL (0.0-0.87); Eosinophils % 2.1 % (0.00-10.9); Hematocrit 38.3 VOL% (35.7-47.0); Immature Granulocytes % 2.8 %; Immature Granulocytes Absolute 0.48 #; Lymphocytes # 1.9 10*3/uL (1.4-4.0); Mean Corpuscular HGB Conc 30.8 GM/DL (32-36); Mean Platelet Volume 10.4 FL (9.6-12.0); Monocytes % 1.3 % (1.7-12.7); NRBC # 0.04 10*3/uL; Neutrophils % 82.4 % (38.7-73.9); Red Cell Distribution Width 15.6 % (9.3-17.3); White Blood Count 17.2 T/CUMM (4-12)
[2020-12-22 05:57] LABS: Hemoglobin 11.8 GM/DL (12.0-16.0); Platelet Count 77 T/CUMM (130-400); Red Blood Count 3.95 MC/CUMM (3.8-5.5)
[2020-12-22] MEDS ORDERED: SODIUM BICARB INJ 100 MEQ in DEXTROSE 5% 1,000 ML IV SCH (06:00)
[2020-12-22 06:06] LABS: Band Neutrophils 5 % (0-10); Lymphocytes 8 % (20-55); Nucleated Red Blood Cells 1 (0-5); Platelet Estimate Decreased; Segmented Neutrophils 83 % (50-85); Total Cells Counted 100
[2020-12-22 06:42] LABS: Albumin 0.7 G/DL (3.4-5.0); Calcium 6.8 MG/DL (8.5-10.1); Total Protein 2.8 G/DL (6.4-8.2)
[2020-12-22 07:18] LABS: ABG Base Excess -21.6 MMOL/L (-2.5-2.5); ABG HCO3 8.8 MMOL/L (20-26); ABG Oxygen Saturation 98.8 % (95-100); ABG PCO2 36.7 MM HG (35-48); ABG TCO2 8.9 MMOL/L (23-27)
[2020-12-22 07:20] LABS: ABG PH 6.993 (7.35-7.45)
[2020-12-22] MEDS ORDERED: NOREPINEPHRINE 4 MG/4 ML VIAL IV ONE (08:07)
[2020-12-22] MEDS: MINERAL OIL/PETROLATUM OPH OINT 3.5 GM TUBE BOTH EYES SCH ×2 (09:33→15:28)
[2020-12-22 10:31] LABS: CKMB % 4.9 %; Calcium 6.5 MG/DL (8.5-10.1); Osmolality,Calculated 291.1 MOS/KG (273-304); Potassium 4.1 MMOL/L (3.5-5.1)
[2020-12-22 10:33] LABS: High Sensitive Troponin I* 678.3 ng/L (0-54)
[2020-12-22] MEDS ORDERED: LACTATED RINGERS 2,000 ML IV ONE (10:39)
[2020-12-22 10:50] LABS: INR 3.2; PT Patient Result 33.4 SECS (10.5-12.0)
[2020-12-22] MEDS ORDERED: SODIUM BICARB INJ 150 MEQ in DEXTROSE 5% 1,000 ML IV SCH (11:00)
[2020-12-22 11:12] LABS: Partial Thromboplastin Time > 211.8 SECS (23.9-33.8)
[2020-12-22 13:02] LABS: Basophils % 0.3 % (0.0-0.8); Eosinophils % 0.1 % (0.00-10.9); Hematocrit 23.5 VOL% (35.7-47.0); Hemoglobin 7.4 GM/DL (12.0-16.0); Immature Granulocytes % 2.9 %; Immature Granulocytes Absolute 0.45 #; Lymphocytes # 2.3 10*3/uL (1.4-4.0); Lymphocytes % 14.7 % (21.3-54.2); Mean Corpuscular HGB Conc 31.5 GM/DL (32-36); Mean Platelet Volume 10.7 FL (9.6-12.0); Monocytes % 0.9 % (1.7-12.7); NRBC # 0.09 10*3/uL; Neutrophils % 81.1 % (38.7-73.9); Platelet Count 59 T/CUMM (130-400); Red Cell Distribution Width 15.6 % (9.3-17.3); White Blood Count 15.5 T/CUMM (4-12)
[2020-12-22 13:18] LABS: CKMB % 4.1 %; Calcium 6.1 MG/DL (8.5-10.1); Osmolality,Calculated 294.6 MOS/KG (273-304); Potassium 3.6 MMOL/L (3.5-5.1)
[2020-12-22 13:19] LABS: High Sensitive Troponin I* 563.9 ng/L (0-54)
[2020-12-22] MEDS ORDERED: PHENYLEPHRINE DRIP 40 MG/250 ML PREMIX IV PRN (13:44)
[2020-12-22] MEDS ORDERED: PHENYLEPHRINE DRIP 40 MG/250 ML PREMIX IV ONE (13:49)
[2020-12-22 13:52] LABS: PT Patient Result 47.6 SECS (10.5-12.0)
[2020-12-22 13:53] LABS: INR 4.6; Partial Thromboplastin Time > 211.0 SECS (23.9-33.8)
[2020-12-22 13:59] LABS: Lymphocytes 11 % (20-55); Nucleated Red Blood Cells 1 (0-5); Segmented Neutrophils 88 % (50-85); Total Cells Counted 100
[2020-12-22 14:00] LABS: Anisocytosis 1+; Hypochromasia 1+; Polychromasia 1+
[2020-12-22 14:01] LABS: Platelet Estimate Decreased
[2020-12-22 14:54] VITALS: BP 71/47
[2020-12-23] MEDS ORDERED: FAMOTIDINE 20 MG/2 ML VIAL IV SCH (09:00)
== END 2020-12-22 16:46 | disposition expired | DRG 296 ==
LOC: N.ED 14:44 → N.EDINP 16:39
PROVIDERS: ADMIT Internal Medicine; ATTEND Internal Medicine